=== PATIENT | female | born 1975 | race Caucasian/White ===

== ENCOUNTER → 2019-06-02 12:15 | Outpatient (CLI) | payer BC, SELFPAY ==
--- NOTE | ~2019-06-02 | MM_ITS ---
EXAMINATION: MM screening [facility] BI w belinda HISTORY: Screening mammogram TECHNIQUE: Craniocaudal and mediolateral oblique 3-D tomosynthesis images were obtained and synthetic 2-D images were generated. CAD analysis was submitted and interpreted. COMPARISON: Comparison to multiple prior studies sequentially, with oldest reviewed study dated 04/01. BREAST PARENCHYMAL COMPOSITION: There are scattered areas of fibroglandular density. FINDINGS: There is no evidence of suspicious mass, calcification, or architectural distortion to sugg est malignancy in either breast. There has been no suspicious interval change. IMPRESSION: 1. No mammographic evidence of malignancy. 2. Recommend routine screening mammography in one year. BI-RADS Category 1: Negative Reviewed, dictated and finalized at location D.
== END ==
PROVIDERS: PCP Emergency Medicine; Visit Provider Advanced Practice Midwife
DX: Z12.31 Encounter for screening mammogram for malignant neoplasm of breast (principal)
CPT/HCPCS: 77063; 77067

== ENCOUNTER → 2020-06-16 10:31 | Outpatient (CLI) | payer BC, SELFPAY ==
--- NOTE | ~2020-06-16 | MM_ITS ---
EXAMINATION: MM screening [facility] BI w belinda HISTORY: Screening mammogram TECHNIQUE: Craniocaudal and mediolateral oblique 3-D tomosynthesis images were obtained and synthetic 2-D images were generated. CAD analysis was submitted and interpreted. COMPARISON: 06/02/2019, 05/14/2018, 04/05/2017 BREAST PARENCHYMAL COMPOSITION: There are scattered areas of fibroglandular density. FINDINGS: There is no evidence of suspicious mass, calcification, or architectural distortion to sugg est malignancy in either breast. There has been no suspicious interval change. IMPRESSION: 1. No mammographic evidence of malignancy. 2. Recommend routine screening mammography in one year. BI-RADS Category 1: Negative Reviewed, dictated and finalized at location A.
== END ==
PROVIDERS: Visit Provider Advanced Practice Midwife
DX: Z12.31 Encounter for screening mammogram for malignant neoplasm of breast (principal)
CPT/HCPCS: 77063; 77067

== ENCOUNTER 2020-10-21 10:59 | Emergency (ER) | payer BC, SELFPAY ==
[2020-10-21 11:18] VITALS: BP 139/95; PULSE 71; RESP 16; TEMP 36.4; O2SAT 99
--- NOTE | 2020-10-21 11:25 | ED.SKABFB ---
HPI - Skin/Abscess/Foreign Bdy General Chief complaint: Skin/Abscess/Foreign Body Stated complaint: wasp sting History of Present Illness HPI narrative: This is a 45-year-old that was stung on her right ring finger yesterday she took some Benadryl last night but woke up today and her hand is swollen with slight erythema but her arm is starting to itch. Patient states she placed some salve on it as well as some tobacco to take the stinger out of it Related Data Allergies Allergy/AdvReac Type Severity Reaction Status Date / Time No Known Allergies Allergy Unverified 08/07/16 18:15 Review of Systems Review of Systems: CONSTITUTIONAL: Denies fever, chills, or sweats. EYES: Denies visual changes, redness, or discharge. ENT: Denies rhinorrhea, congestion, sore throat, or otalgia. CARDIOVASCULAR:Denies chest pain, palpitations, or edema. RESPIRATORY: Denies cough or dyspnea. GASTROINTESTINAL: Denies abdominal pain, nausea, vomiting, or diarrhea. GENITOURINARY: Denies dysuria or hematuria. SKIN:[Denies rash or itching. Right ring finger swollen as well as hand and arm is starting to itch MUSCULOSKELETAL:Denies back pain, joint pain, or myalgia. NEUROLOGIC: Denies headache, numbness, or weakness. PSYCHIATRIC:Denies anxiety or depression PMFSH Comments At time as signature, I have reviewed and agree with nursing past medical, social, surgical and family history. Please see nursing chart for further information. There is no relevant family history pertinent to the presenting complaint. Exam Narrative: GENERAL:Well-appearing, well-nourished, and in no acute distress. HEAD:Normocephalic, atraumatic. EYES: PERRLA and EOMI. ENT: Nares clear, no rhinorrhea or epistaxis. Mucous membranes moist. NECK: Supple. CHEST: Clear to auscultation. No respiratory distress. HEART: Regular rate and rhythm. No murmur heard. Normal peripheral pulses. ABDOMEN: Soft, nontender, nondistended, normal active bowel sounds. EXTREMITIES: Normal range of motion. Right hand swollen close to the ring finger SKIN: Warm, dry, no rash. Right hand with urticaria, slight erythema, edema NEURO: No focal deficits. Alert and oriented x3. Course LANDFILL GAS TECHNICIAN/PA Physician Supervision Discussed if she ever was bitten by or stung she needs to make sure she is taking antihistamines Discharge Plan Discharge Clinical Impression: Allergy to bee sting Contact dermatitis Qualifiers: Contact dermatitis type: allergic Contact dermatitis trigger: other trigger Qualified Code(s): L23.89 - Allergic contact dermatitis due to other agents Patient Disposition: Home, Self-Care Condition: Stable Instructions: Antibiotic Form, Insect Bite or Sting (ED), Anaphylaxis (ED), Allergies (ED) Additional Instructions: Rash use skin creams/lotion, such as those containing calamine or pramoxine to reduce itchiness Avoid scratching when possible to prevent worsening of the condition and disruption of the skin that could lead to bacterial infection To relieve itching, place a cool washcloth or some ice over the area that itches, rather than scratching Return to the office or seek ER visit if condition is not improving or worsens with fever, swelling, difficulty breathing or swallowing. Prescriptions: New cetirizine [Zyrtec] 10 mg tablet 10 mg PO DAILY PRN (Reason: allergy symptoms) Qty: 30 RF: 0 triamcinolone acetonide 0.1 % ointment 1 applic topical BID Qty: 15 RF: 0 methylprednisolone [Medrol (David)] 4 mg tablets,dose pack See Rx Instructions .ROUTE .COMPLEX Qty: 21 RF: 0 Follow-up/Referrals: Jimy Wadsworth MD [Primary Care Provider] - Time of Disposition: 11:32
== END 2020-10-21 11:37 | disposition home or self-care (01) ==
PROVIDERS: Emergency Provider Nurse Practitioner Family; PCP Emergency Medicine
DX: T63.461A Toxic effect of venom of wasps, accidental (unintentional), initial encounter (principal); L23.89 Allergic contact dermatitis due to other agents; E78.00 Pure hypercholesterolemia, unspecified; I10 Essential (primary) hypertension; F41.9 Anxiety disorder, unspecified
CPT/HCPCS: 99213; G0463

== ENCOUNTER → 2021-04-25 10:39 | Outpatient (CLI) | payer BC, SELFPAY ==
--- NOTE | ~2021-04-25 | US_ITS ---
EXAMINATION: US thyroid EXAM DATE: 04/25/2021 11:23 INDICATION: h/o partial thyroidectomy TECHNIQUE: Multiple grayscale and Doppler images of the thyroid were obtained (by a technologist who performed the scan) and subsequently reviewed. Individual nodules and recommendations may be reporte d in accordance with TI-RADS system as designated by the 2017 ACR White Paper TI-RADS committee. Comp clover is made to prior examination from 04/01/2016. FINDINGS: Right thyroid lobectomy, unremarkable thyroidectomy bed. Left thyroid lobe measures 4.9 x 1.3 x 1.7 c m possibly with lobulations or possibly isoechoic thyroid nodules measuring 1.2 x 1.2 x 1.5 cm and 1 .5 x 1.0 x 1.1 cm, category TR 3. These regions are not specifically measured on prior study. IMPRESSION: 1. Left thyroid lobe lobulation versus isoechoic category TR 3 nodules; recommend one-year follow-up . 2. Unremarkable right thyroid lobectomy bed. Reviewed, dictated and finalized at location B. HOUSE OPERATOR HELPER IMPRESSION: 1. Left thyroid lobe lobulation versus isoechoic category TR 3 nodules; recomm end one-year follow-up. 2. Unremarkable right thyroid lobectomy bed.
--- NOTE | ~2021-04-25 | US_ITS ---
EXAMINATION: US renal BI DATE: 04/25/2021 11:23 INDICATION: Microscopic hematuria TECHNIQUE: Multiple ultrasound grayscale images of the kidneys were obtained. COMPARISON: None. FINDINGS: The right kidney measures 11.4 x 5.0 x 5.2 cm. The left kidney measures 10.0 x 6.3 x 6.0 cm. The kidn eys demonstrate normal echogenicity. There is no hydronephrosis in either kidney. No stones identifi ed. The bladder is normal. IMPRESSION: 1. Normal kidneys without hydronephrosis. Reviewed, dictated and finalized at location A. GAGE BANKER
--- NOTE | ~2021-04-25 | US_ITS ---
EXAMINATION: US right upper quadrant EXAM DATE: 04/25/2021 11:23 INDICATION: RUQ pain TECHNIQUE: Multiple grayscale and Doppler images of the abdomen right upper quadrant were obtained (toshia y a technologist who performed the scan) and subsequently reviewed. There is no prior study for olamide galo. FINDINGS: The pancreatic head and body are normal in appearance. The pancreatic tail is not visualized. The l iver has normal echogenicity and contour. There is liver hypoechogenic lesion measuring 1.6 x 1.1 x 1.2 cm. Liver lesions are nonspecific by ultrasound. Patient's age favor benign histology. MR would b e most specific for evaluating. There is no evidence of intrahepatic biliary duct dilation. Portal venous flow was seen in the hepatopedal, normal direction and has normal Doppler waveform. No right- sided hydronephrosis. Common bile duct measures 3 mm, which is normal. The gallbladder wall is normal in thickness, with ex pected amount of distention. No sonographic evidence of pericholecystic fluid. There is a gallbladd er polyp measuring 5 mm requiring no further follow-up. Technologist performing exam reports patient did not demonstrate sonographic Hughes's sign. Please note that this sign is less reliable in patie nts who have received pain medication. IMPRESSION: 1. Small liver lobe lesion anteriorly, statistically most likely benign histology but ultrasound is nonspecific. MR abdomen without and with contrast would be most specific for evaluating. 2. Small gallbladder polyp. Reviewed, dictated and finalized at location B. ELET AND BROOCH MAKER IMPRESSION: 1. Small liver lobe lesion anteriorly, statistically most likely benign histol ogy but ultrasound is nonspecific. MR abdomen without and with contrast would b e most specific for evaluating. 2. Small gallbladder polyp.
== END ==
PROVIDERS: Visit Provider Emergency Medicine
DX: R31.29 Other microscopic hematuria (principal); R10.11 Right upper quadrant pain; K82.4 Cholesterolosis of gallbladder
CPT/HCPCS: 76536; 76705; 76775

== ENCOUNTER 2021-05-04 09:47 | Outpatient (CLI) | payer BC, SELFPAY ==
--- NOTE | ~2021-05-04 | NM_ITS ---
EXAMINATION: NM hepatobiliary wo pharm DATE: 05/04/2021 13:15 INDICATION: Right upper quadrant abdominal pain COMPARISON: None. TECHNIQUE: 4.9 mCi Tc-99m mebrofenin (Choletec) was administered intravenously. Scintigraphic images of the abdomen were obtained for one hour. At the 1 hour time point, the patient drank 8 oz Ensure, and imaging was continued for 60 minutes. Gallbladder ejection fraction was calculated by the technol ogist. FINDINGS: There is normal clearance of radiotracer from the blood pool. There is homogeneous tracer u ptake by the liver. Activity progresses to the bowel and gallbladder. The gallbladder ejection fract ion (GBEF) is 43%. Note that with this technique, normal GBEF >= 33%. IMPRESSION: 1. Normal hepatobiliary scan. Reviewed, dictated and finalized at location A. ESS TECHNICIAN
== END 2021-05-04 09:48 | disposition home or self-care (01) ==
LOC: ANHIMG 09:49
PROVIDERS: PCP Emergency Medicine; Visit Provider Surgery
DX: R10.11 Right upper quadrant pain (principal)
CPT/HCPCS: 78226; A9537

== ENCOUNTER 2021-06-13 15:20 | Outpatient (CLI) | payer BC, SELFPAY ==
--- NOTE | 2021-06-13 15:30 | ECG_ITS ---
Measurements Intervals Garber Rate: 70 P: 43 MA: 161 QRS: 21 QRSD: 105 T: 23 QT: 392 QTc: 424 Interpretive Statements SINUS RHYTHM POSSIBLE RIGHT VENTRICULAR CONDUCTION DELAY [RSR (QR) IN V1/V2] BASELINE ARTIFACT BORDERLINE ECG NO PREVIOUS ECG AVAILABLE FOR COMPARISON Electronically Signed On 06-13-2021 15:38:14 CDT by Houston Harding M.D.
[2021-06-13 16:14] LABS: Anion Gap 9 mmol/L (8-16); Blood Urea Nitrogen 11 mg/dL (7-17); Calcium 8.9 mg/dL (8.4-10.2); Carbon Dioxide 23 mmol/L (22-30); Chloride 104 mmol/L (98-107); Estimated Glomerular Filt Rate > 60; Glucose 141 mg/dL (65-110); Potassium 3.4 mmol/L (3.4-5.0); Sodium 136 mmol/L (137-145)
[2021-06-13 16:15] LABS: Alanine Aminotransferase 27 U/L (4-35); Albumin Level 4.5 g/dL (3.5-5.1); Alkaline Phosphatase 71 U/L (38-126); Amylase 83 U/L (30-110); Aspartate Amino Transferase 29 U/L (14-36); Bilirubin,Total 0.4 mg/dL (0.2-1.3); Lipase 155 U/L (23-300)
== END 2021-06-13 15:21 | disposition home or self-care (01) ==
LOC: ANHSURGERY 15:23
PROVIDERS: Anesthesiology; PCP Emergency Medicine; Visit Provider Surgery
DX: K81.9 Cholecystitis, unspecified (principal); I10 Essential (primary) hypertension; Z79.899 Other long term (current) drug therapy; Z01.818 Encounter for other preprocedural examination; I45.9 Conduction disorder, unspecified
CPT/HCPCS: 36415; 80048; 80076; 82150; 83690; 86850; 86900; 86901; 93005

== ENCOUNTER 2021-06-15 01:48 | Day surgery (SDC) | payer BC, SELFPAY ==
[2021-06-07 10:19] VITALS: BMI 36.6
--- NOTE | 2021-06-07 10:34 | PC.NURSE ---
Report to the Outpatient Waiting Room, entrance under the green pavilion located off [facility], at time 9:00 on date 06/15/21. OR Time: 11:00. - You and your visitor will be asked a series of questions to screen for COVID 19 for your protection. - A mask is required within the hospital. One visitor will be allowed to accompany the patient into the hospital. Patients visitor will be instructed to remain with patient at all times or leave the building. We will allow the visitor to come back to the postoperative area when patient is ready. Preoperative COVID Testing Requirements: No COVID Test needed if: (proof is required; if not received patient will have Rapid Test prior to entry) - Patient has received COVID Vaccine at least 14 days prior to procedure date or - Patient has positive COVID test result within last 90 days of surgery date. COVID Test needed if above criteria is not met Patients may have clear liquids (water, carbonated beverages, clear teas, apple juice) until 3 hours prior to surgery (8:00) with a maximum of 20 ounces. - No food from midnight until time of surgery Take the following medications with a SIP of water the morning of surgery: CARVEDILOL, PAROXETINE Medications to discontinue per physician: VITAMINS/SUPPLEMENTS Date to take last dose: 06/11/21 Please no make-up, nail amharic, hairspray, perfume, deodorant, or body powder the day of surgery. No jewelry (including any body piercings) or valuables the day of surgery, leave them at home. Please take a shower or bath the night before, or the morning of, surgery with an antibacterial soap. Wear comfortable, loose fitting clothing. HIBICLENS SHOWER - Jewelry must be removed prior to entering the operating room. Rings and piercings that are not removed may be cut off. - The hospital will not accept responsibility for valuables. - Please leave all valuables, including medications, at home the day of surgery. If you are going home after surgery, a licensed substitute bus driver must drive you home. - NO public transportation without another adult. - We recommend that an adult stay with you for 24 hours following discharge. - We also recommend that you do not drive, make important decision, drink alcoholic beverages, or take any drugs that were not prescribed by your health care provider for at least 24 hours after your discharge time. Follow any additional instructions given to you from your surgeon. Telephone instructions given to EVELYN DESAI and asked if any additional questions and then verbalized understanding. Patient advised to call surgeon office or pre surgery nurse liaison [phone] if any additional questions.
--- NOTE | 2021-06-14 16:11 | PM.SD2 ---
Same Day Admit/Disch: HPI History of Present Illness Chief complaint: acalculous chronic cholecystitis Narrative: Maritza Doherty is a 46 year old female who has had postprandial right upper quadrant abdominal pain for about 6 months. She describes the pain as burning cramping and bloating. It radiates to her back. She had an ultrasound that showed only a small gallbladder polyp. She had a HIDA scan which was negative. She has tried omeprazole without any improvement. She has tried a low-fat diet but did not notice any significant difference with that either. After thorough discussion, it is felt she likely has chronic cholecystitis. She is taken to surgery now for laparoscopic cholecystectomy. [facility] Past Medical History Medical History High cholesterol Hypertension Thyroid cancer Thyroid condition Surgical History Surgical History H/O chest tube placement H/O thyroidectomy Previous section [place] teeth extracted Family History Family History Father Hypertension Heart problem Mother Hypertension High cholesterol Osteoporosis Other Breast cancer Diabetes mellitus Social History Social History Smoking packs per day: 0.5 Smoking cigarettes per day: 10.0 Years smoked: 25 Smoking pack-years: 12.50 Smoking status: Current every day smoker Tobacco type: cigarettes Alcohol intake: never Alcohol use details: VERY RARELY Substance use: current Substance use type: other Other substance usage details: CBD OIL Living arrangements: with family Additional living arrangements comments: DAUGHTER 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 [employer] Gender identity (if verbalized by the patient): Female Spiritual care concerns: No Same Day Admit/Disch: Med Pre-admit Medications Home Medications Medication Instructions Recorded Confirmed Type losartan 100 mg PO DAILY 10/21/20 06/15/21 History omega 0-pxn-dwo-fish oil [Fish Oil] 1 cap PO DAILY 10/21/20 06/15/21 History paroxetine HCl 30 mg PO DAILY 10/21/20 06/15/21 History atorvastatin 40 mg tablet 40 mg PO DAILY 04/27/21 06/15/21 History carvedilol 6.25 mg tablet 12.5 mg PO BID tablet 04/27/21 06/15/21 History hydrochlorothiazide 12.5 mg capsule 12.5 mg PO DAILY 04/30/21 06/15/21 History multivitamin 1 tablet PO DAILY 06/07/21 06/15/21 History hydrocodone-acetaminophen 1 - 2 tablet PO Q6H PRN #10 tablet 06/15/21 Rx ibuprofen 600 mg PO Q6H PRN #14 tablet 06/15/21 Rx Exam Const: General: comfortable, no acute distress, alert and awake HENMT: Head: normocephalic and atraumatic Mouth: Yes Normal oral and palatal mucosa present Eyes: Conjunctivae: conjunctivae normal Pupils: Equal, round and reactive pupils present EOM: EOMs intact bilaterally Neck: Neck: normal visual inspection, no lymphadenopathy and nontender Resp: Effort & Inspection: normal respiratory effort Auscultation: clear to auscultation bilaterally Cardio: Rate: regular rate Rhythm: regular rhythm Heart sounds: no gallops, no murmurs and no rubs GI: Inspection: non-distended and obesity GI Palp: Yes Soft to palpation, Yes Tenderness to palpation present (GI) (Right upper quadrant), No Guarding due to palpation present (GI), No Hepatomegaly present, No Splenomegaly present and No Rebound tenderness present Auscultation: normal bowel sounds Skin: Lesions: no lesions Rashes: no rashes Neuro: General: no focal motor deficits and CN's II-XI intact bilaterally Cranial nerves: Yes Equal, round and reactive pupils present, Yes Bilaterally intact EOM present, Yes facial symmetry and Yes Midline tongue present Speech: normal speech Motor exam (neuro): 5/5 motor strength present throughout and Motor abnormalities not present Ext
[2021-06-15] VITALS (9 sets, daily range): BP systolic 109–142; BP diastolic 56–94; PULSE 54–82; RESP 12–20; TEMP 36.5–36.8; O2SAT 94–100
--- NOTE | 2021-06-15 10:01 | WPDANESEPPF ---
Anes - Initial Pre Proc Eval Procedure: Operation Date: 06/15/21 11:00 Proposed Procedures p Laparoscopic Cholecystectomy - Dong Vo MD Date/Time: 06/15/21 10:01 Surgeon: Dong Vo MD Pre Op Diagnosis: acalculous chronic cholecystitis Patient Data Age: 46 Gender: F Height: 1.65 m Weight: 99.79 kg Allergies Allergy/AdvReac Type Severity Reaction Status Date / Time No Known Allergies Allergy Verified 06/15/21 09:21 Home Medications Medication Instructions Recorded Confirmed Type losartan 100 mg PO DAILY 10/21/20 06/07/21 History omega 5-sss-fqz-fish oil [Fish Oil] 1 cap PO DAILY 10/21/20 06/07/21 History paroxetine HCl 30 mg PO DAILY 10/21/20 06/15/21 History atorvastatin 40 mg tablet 40 mg PO DAILY 04/27/21 06/07/21 History carvedilol 6.25 mg tablet 12.5 mg PO BID tablet 04/27/21 06/15/21 History hydrochlorothiazide 12.5 mg capsule 12.5 mg PO DAILY 04/30/21 06/07/21 History multivitamin 1 tablet PO DAILY 06/07/21 06/07/21 History Patient hx anesthesia problems: none Family hx anesthesia problems: none Results Review: All pre-operative results and documents have been reviewed as part of the pre-operative evaluation. [facility] Past Medical History Medical History High cholesterol Hypertension Thyroid cancer Thyroid condition Surgical History Surgical History H/O chest tube placement H/O thyroidectomy Previous section [place] teeth extracted Family History Family History Father Hypertension Heart problem Mother Hypertension High cholesterol Osteoporosis Other Breast cancer Diabetes mellitus Social History Social History Smoking packs per day: 0.5 Smoking cigarettes per day: 10.0 Years smoked: 25 Smoking pack-years: 12.50 Smoking status: Current every day smoker Tobacco type: cigarettes Alcohol intake: never Alcohol use details: VERY RARELY Substance use: current Substance use type: other Other substance usage details: CBD OIL Living arrangements: with family Additional living arrangements comments: DAUGHTER 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 Informed Consent: The patient's anesthetic plan and its attendant risks and benefits were discussed with the patient/family/POA. Questions were solicited and answers provided to the satisfaction of the patient/family/POA.
[2021-06-15] MEDS: LACTATED RINGERS 1,000 ML 30 ML IV CONT ×2 (10:15→12:42)
[2021-06-15] MEDS: ACETAMINOPHEN 500 MG TABLET 1000 MG PO (10:15)
[2021-06-15] MEDS: KETOROLAC 15 MG/ML VIAL (*BKC) IV PUSH (10:37)
--- NOTE | 2021-06-15 11:02 | WPDHPUPDATE1 ---
History and Physical Update Update Date/Time: 06/15/21 11:02 History and Physical has been reviewed, including an updated exam of the patient. There are NO changes in the patient's condition. Risks, benefits, and alternatives have been discussed and questions answered. Patient agrees to proceed with procedure.
[2021-06-15] MEDS: ceFAZolin 2 GM/D5W 50 ML 2 GM/50 ML BAG IVPB (11:19)
--- NOTE | 2021-06-15 12:49 | W.PM.PROC2 ---
Procedure Note - Detailed Date of Procedure 06/15/21 Pre-op Diagnosis acalculous chronic cholecystitis, gallbladder polyp Post-op Diagnosis Same Procedure Performed Laparoscopic cholecystectomy Surgeon Dong Vo MD Balance Wheel Hand Filer Kati Mjeia [facility] Anesthesia General and Local (0.25% Marcaine with epinephrine) Indications Patient has had right upper quadrant abdominal pain that radiates to her back. It usually occurs after eating and particularly a fatty meal. Her ultrasound showed a gallbladder polyp but no stones. HIDA scan was normal. Low-fat diet was not successful in improving her symptoms. She is taken to surgery now for laparoscopic cholecystectomy. Findings Gallbladder had minimal inflammation and no stones were noted. However, she had fatty liver and the liver surface itself was very soft and bled readily. The integrity of the liver was in less than 1 would normally expect. The majority of the gallbladder was partially intrahepatic which also increased the difficulty of the surgery. The surgery took longer and there was more bleeding because of the abnormal character of the liver itself. No biliary ductal dilatation. Description of Procedure The patient was taken to surgery and induced into general anesthesia. The abdomen is prepped and draped. Trocars were placed in the usual fashion using 0.25% Marcaine with epinephrine and applied Medical optical trocars. The gallbladder was decompressed with a laparoscopic aspirator. A Vicryl endoloop was used to close the cholecystotomy. The gallbladder itself was partially intrahepatic and had decompressed significantly. The gallbladder was retracted anterosuperiorly. I started dissection in the cholecystohepatic triangle but with the fatty liver and the liver enveloping most of the gallbladder, I had to place another 5 mm port in the left mid abdomen. From this port, a laparoscopic Kittner retractor was used to retract the medial segment of the left lobe of the liver so that I could see the attachments of the gallbladder to the liver. From there, I dissected the cholecystohepatic triangle. Nearly all dissection and even bumping the liver with an instrument resulted in bleeding from the liver itself. Cautery of these sites of minor injury was necessary to stop the bleeding. Regardless, bleeding was troublesome as far as visualization. None the less, dissection was carried out in the cholecystohepatic triangle. The cystic duct and cystic artery were dissected out clearly. We dissected the gallbladder off the liver at its lower 3rd. Critical view was achieved. I securely clipped and divided the cystic duct and cystic artery. From there we continued dissection of the gallbladder from the liver. The liver surface tended to bleed as well and would easily come off with the gallbladder if we retracted with even a moderate degree of tension. We persisted and eventually freed the gallbladder entirely from the liver. No significant bleeding of the liver recurred but more of a slow ooze that caused visualization to be more difficult. The gallbladder was placed in an Endo-Catch bag retrieved through the 10 11 epigastric trocar site. The epigastric trocar was then replaced. The liver was retracted anterosuperiorly. Using suction and irrigation as well as additional cautery, the gallbladder fossa and the undersurface the liver were made hemostatic. Repeated irrigation and suctioning were carried out. Eventually all looked good with no evidence of bleeding or bile leakage. Any residual clot or bloody irrigation was suctioned away as well. No stones had been noted. We then evacuated CO2 and removed the trocar sleeves. Skin wounds were closed with subcuticular 4-0 Monocryl skin suture. Sponge and needle counts were correct x2. The patient was awakened and taken to recovery in good condition. Estimated Blood Loss -40.0 Drains No Packing No Pathology Yes (Gallbladder) Complications No immedi
[2021-06-15] MEDS: fentaNYL CITRATE INJ (*CRX) 100 MCG/2 ML VIAL 25 MCG IV PUSH ×4 (13:17→13:50)
[2021-06-15] MEDS: oxyCODONE HCL (*CRX) 5 MG TAB IR PO (14:27)
== END 2021-06-15 15:11 | disposition home or self-care (01) ==
PROVIDERS: PCP Emergency Medicine; Visit Provider Surgery
PROC: 0FT44ZZ Resection of Gallbladder, Percutaneous Endoscopic Approach (ICD-10-PCS; CPT 47562; principal; 2021-06-15 11:00)
DX: K81.1 Chronic cholecystitis (principal); E78.00 Pure hypercholesterolemia, unspecified; K76.0 Fatty (change of) liver, not elsewhere classified; I10 Essential (primary) hypertension; E89.0 Postprocedural hypothyroidism; Z85.850 Personal history of malignant neoplasm of thyroid; F17.210 Nicotine dependence, cigarettes, uncomplicated; E66.9 Obesity, unspecified; Z68.36 Body mass index [BMI] 36.0-36.9, adult
CPT/HCPCS: 47562; 88304; A9270; C1713; J0690; J1100; J1170; J1885; J2250; J2310; J2405; J2704; J3010; J7120

== ENCOUNTER → 2021-09-18 11:07 | Outpatient (CLI) | payer BC, SELFPAY ==
--- NOTE | ~2021-09-18 | MM_ITS ---
EXAMINATION: MM screening [facility] BI w belinda HISTORY: Screening TECHNIQUE: Craniocaudal and mediolateral oblique 3-D tomosynthesis images were obtained and synthetic 2-D images were generated. CAD analysis was submitted and interpreted. COMPARISON: Comparison to multiple prior studies sequentially, with oldest reviewed study dated 04/01. BREAST PARENCHYMAL COMPOSITION: The breasts are heterogeneously dense, which may obscure small masses . FINDINGS: There is no evidence of suspicious mass, calcification, or architectural distortion to sugg est malignancy in either breast. There has been no suspicious interval change. IMPRESSION: 1. No mammographic evidence of malignancy. 2. Recommend routine screening mammography in one year. BI-RADS Category 1: Negative Reviewed, dictated and finalized at location A.
== END ==
PROVIDERS: PCP Emergency Medicine; Visit Provider Advanced Practice Midwife
DX: Z12.31 Encounter for screening mammogram for malignant neoplasm of breast (principal)
CPT/HCPCS: 77063; 77067

== ENCOUNTER → 2022-05-20 12:48 | Outpatient (CLI) | payer BC, SELFPAY ==
--- NOTE | ~2022-05-20 | US_ITS ---
EXAMINATION: US thyroid DATE: 05/20/2022 13:58 INDICATION: Thyroid nodule. TECHNIQUE: Multiple ultrasound images of the thyroid were obtained. COMPARISON: Ultrasound 04/25/2021, 04/01/16 FINDINGS: The right thyroid lobe is absent. The left thyroid lobe measures 4.6 x 1.5 x 1.8 cm. In the thyroid isthmus, there is an 8 mm solid, hypoechoic, wider than tall nodule with smooth margin without echoge korey foci (TI-RADS TR4). In the left thyroid lobe, there is a 12 mm solid, isoechoic, wider than tall nodule with ill-defined margin without echogenic foci (TR3). In the left thyroid lobe, there is a 9 m m predominantly solid, hypoechoic, wider than tall nodule with smooth margin without echogenic foci ( TR4). In the left thyroid lobe, there is a 9 mm solid, wider than tall, hypoechoic nodule with smooth margin without echogenic foci (TR4). In the left thyroid lobe, there is a 1.6 cm solid, isoechoic, w ider than tall nodule with ill-defined margin without echogenic foci (TR3), stable from 04/01/16. IMPRESSION: 1. Thyroid nodules, likely not clinically significant. No follow-up is needed. 2. Right hemithyroidectomy. Reviewed, dictated and finalized at location A. TER SCORER
== END ==
PROVIDERS: PCP Emergency Medicine
DX: E04.2 Nontoxic multinodular goiter (principal)
CPT/HCPCS: 76536

== ENCOUNTER → 2022-11-19 15:04 | Outpatient (CLI) | payer BC, SELFPAY ==
--- NOTE | ~2022-11-19 | MM_ITS ---
EXAMINATION: MM screening yesi BI w belinda HISTORY: Screening mammogram TECHNIQUE: Craniocaudal and mediolateral oblique 3-D tomosynthesis images were obtained and synthetic 2-D images were generated. CAD analysis was submitted and interpreted. COMPARISON: 09/18/2021, 06/16/2020, 06/02/2019 bilateral screening mammogram examinations BREAST PARENCHYMAL COMPOSITION: There are scattered areas of fibroglandular density. FINDINGS: There is no evidence of suspicious mass, calcification, or architectural distortion to sugg est malignancy in either breast. There has been no suspicious interval change. IMPRESSION: 1. No mammographic evidence of malignancy. 2. Recommend routine screening mammography in one year. BI-RADS Category 1: Negative Reviewed, dictated and finalized at location A.
== END ==
PROVIDERS: PCP Advanced Practice Midwife; Visit Provider Emergency Medicine
DX: Z12.31 Encounter for screening mammogram for malignant neoplasm of breast (principal)
CPT/HCPCS: 77063; 77067

== ENCOUNTER 2023-10-02 09:08 | Outpatient (CLI) | payer BC, SELFPAY ==
--- NOTE | ~2023-10-02 | US_ITS ---
EXAMINATION: US thyroid DATE: 10/02/2023 09:26 INDICATION: . Nodule TECHNIQUE: Multiple ultrasound images of the thyroid were obtained. COMPARISON: None. FINDINGS: Status post right thyroidectomy with no abnormal tissue identified at the right thyroid fossa. The le ft thyroid lobe measures 4.0 x 1.7 x 1.7 cm. There are couple wider than tall solid hypoechoic very hypoechoic nodules with smooth margins and without echogenic foci (TI-RADS 4, moderately suspicious , FNA if >=1.5 cm, annual followup is >=1 cm) is larger measuring 10 mm the inferior left thyroid and the smaller measuring 8 mm at the remaining left side of the thyroid isthmus. 9 mm wider than tall so lid hyperechoic nodule with ill-defined margins and without echogenic foci at the inferior left thyro id (TI-RADS 3, mildly suspicious , FNA if >=2.5 cm, annual followup is >=1.5 cm). Finally there is a wider than tall mixed solid and cystic nodule with smooth margins, isoechoic solid component and no e chogenic foci (TI-RADS 2, not suspicious, no FNA recommended) in the inferior left thyroid. IMPRESSION: 1. There is post prior thyroidectomy. 2. A few small nodules in the left thyroid, the most significant a 1 cm TI RADS 4 nodule for which an nual ultrasound would be recommended. Reviewed, dictated and finalized at location A. IMPRESSION: 1. There is post prior thyroidectomy. 2. A few small nodules in the left thyroid, the most significant a 1 cm TI RADS 4 nodule for which annual ultrasound would be recommended.
== END 2023-10-02 09:09 ==
PROVIDERS: PCP Emergency Medicine
DX: E04.1 Nontoxic single thyroid nodule (principal)
CPT/HCPCS: 76536

== ENCOUNTER 2023-11-25 15:06 | Outpatient (CLI) | payer BC, SELFPAY ==
--- NOTE | ~2023-11-25 | MM_ITS ---
EXAMINATION: MM screening [facility] BI w belinda HISTORY: Screening mammogram TECHNIQUE: Craniocaudal and mediolateral oblique 3-D tomosynthesis images were obtained and synthetic 2-D images were generated. CAD analysis was submitted and interpreted. COMPARISON: 11/19/2022, 09/18/2021, 06/16/2020, 06/02/2019 BREAST PARENCHYMAL COMPOSITION:Not Dense. There are scattered areas of fibroglandular density. FINDINGS: No suspicious mass, calcification, or architectural distortion are identified in either harinder ast to suggest malignancy. There has been no suspicious interval change. IMPRESSION: No mammographic evidence of malignancy. Recommend routine screening mammography in one year. BI-RADS Category 1: Negative Reviewed, dictated and finalized at location .
== END 2023-11-25 15:07 | disposition home or self-care (01) ==
PROVIDERS: PCP Nurse Practitioner Family; Visit Provider Nurse Practitioner Family
DX: Z12.31 Encounter for screening mammogram for malignant neoplasm of breast (principal)
CPT/HCPCS: 77063; 77067

== ENCOUNTER 2025-02-15 15:46 | Outpatient (CLI) | payer BC, SELFPAY ==
--- NOTE | ~2025-02-15 | MM_ITS ---
EXAMINATION: MM screening yesi BI w belinda HISTORY: Screening. TECHNIQUE: Craniocaudal and mediolateral oblique 3-D tomosynthesis images were obtained and synthetic 2-D images were generated. CAD analysis was submitted and interpreted. COMPARISON: 2023, 2022, and 2021 BREAST PARENCHYMAL COMPOSITION: Dense: The breasts are heterogeneously dense FINDINGS: No suspicious masses are seen. There are no suspicious calcifications. No unexplained architectural distortion is seen. There are no skin or nipple abnormalities identified. There is no adenopathy seen on the images submitted. IMPRESSION: No mammographic evidence to suggest malignancy is seen. The patient may return to screening mammography as per ACR guidelines. BI-RADS 1 - Negative. Reviewed, dictated and finalized at location B. POLLUTION SPECIALIST
--- OUTSIDE RECORDS SUMMARY | 2025-02-15 16:50 | XMS_ITS | Encounter Summary ---
Author Organization [facility] Address [facility] [place] [address] Care Team Providers Care Medicine Technologist Name Role Phone Abbie Klein [facility]- Primary Care Provider + Marciano Lara MD Primary Care Provider [phone] Encounter Details Date Type Department Care Team (Late st Contact Info) Description 12/25/2023 [employer] Message Enc [facility] Family & Internal Medicine [address] [address] Abbie Klein, [facility]- [address] [place] [address] Pain in the right upper abdomen again Social History Tobacco Use Types Packs/Day Years Used Date Smoking Tobacco: Never Cigarettes 0.3 26 Passive Smoke Exposure: Yes Comments:I used to smoke cig arettes, but I pretty much vape now Alcohol Use Standard Drinks/Week Comments Not Currently 0 (1 standard drink = 0.6 oz pure alcohol) I very rarely drink, but if I do, it's maybe 2 or 3 PHQ-2 Answer Date Recorded Patient Health Questionnaire-2 Score 4 12/01/2023 Comments No Sex and Gender Information Value Date Recorded Sex Assigned at Female 10/21/2024 9:20 AM CDT Legal Sex Female 9:41 AM CDT Gender Identity Female 10/21/2024 9:20 AM CDT Sexual Orientation Not on file documented as of this encounter Progress Notes * ISRAEL Bundy - 12/29/2023 12:20 PM CDT Please order HOA, ESR, CRP, B12/folate, vitamin D, and CBC for polyarthralgias * Carmen Sousa RN - 12/29/2023 11:47 AM CDT Please advise. documented in this encounter Plan of Treatment Upcoming Encounters Date Type Department Care Team (Late st Contact Info) Description 07/26/2025 3:20 PM CDT Office Visit [facility] Medical [facility] Family & Internal Medicine [address] [address] [place] [id number] [address] documented as of this encounter Visit Diagnoses Not on filedocumented in this encounter Additional Health Concerns Assessment Noted Time PHQ-9 Depression Total Score: 14 0916/2 024 3:56 PM CDT documented as of this encounter Care Teams Medicine Technologist Relationship Specialty Start Date End Date Abbie Klein FNP-BC PCP - General Nurse Practitioner Family 10/28/2309/14 [place] [id number] [address] PCP - General INTERNAL MEDICINE 09/25/24 documented as of this encounter
--- OUTSIDE RECORDS SUMMARY | 2025-02-15 16:50 | XMS_ITS | Clinical Summary ---
Author Organization [facility] Address [address] [facility] [place] [address] Care Team Providers Care Residency Coordinator Name Role Phone Unavailable Primary Care Provider Unavailabl e Source Comments [facility],non-owned Affiliates and Associated Physician Practices is amultiple site organization consisting of ambulatory clinics and hospital sitesin [place] and [place]. This disclosure is being madepursuant to the Care Everywhere program and may not contain all information available regarding this patient. Last updated 17.[facility] Allergies No known active allergies Medications * Be aware that medications may not be up to date on this document. Alwaysverify current medications with the patient. No known medications Social History Tobacco Use Types Packs/Day Years Used Date Smoking Tobacco: Every Day Comments Unknown Sex and Gender Information Value Date Recorded Sex Assigned at Not on file Legal Sex Female 2:18 PM APPLICATION SOFTWARE DEVELOPER Gender Identity Not on file Sexual Orientation Not on file Last Filed Vital Signs Vital Sign Reading Time Taken Comments Blood Pressure 122/86 02/01/2016 4:59 PM APPLICATION SOFTWARE DEVELOPER Pulse 89 02/01/2016 4:59 PM APPLICATION SOFTWARE DEVELOPER Temperature 37.1 C (98.7 F) 02/01/2016 4:59 PM APPLICATION SOFTWARE DEVELOPER Respiratory Rate 20 02/01/2016 4:59 PM APPLICATION SOFTWARE DEVELOPER Oxygen Saturation 98% 02/01/2016 4:59 PM APPLICATION SOFTWARE DEVELOPER Inhaled Oxygen Concentration - - Weight 86.2 kg (190 lb) 02/01/2016 4:59 PM APPLICATION SOFTWARE DEVELOPER Height 165.1 cm (5' 5) 02/01/2016 4:59 PM APPLICATION SOFTWARE DEVELOPER Body Mass Index 31.62 02/01/2016 4:59 PM APPLICATION SOFTWARE DEVELOPER Plan of Treatment Health Maintenance Due Date Last Done Comments COLOGTRI (AGES 45-75) - COL ON CA SCREENING 1975 COLON MONITORING 1975 COLONOSCOPY - COLON CA SCREENING 1975 CT COLONOGRAPHY - COLON CA SCREENING 1975 Colorectal Cancer Screening 1975 FIT - COLON CA SCREENING 1975 FLEX SIG - COLON CA SCREENING 1975 LIPID TESTING 1975 MAMMOGRAM 1975 HIV SCREENING 1990 HEPATITIS C SCREENING 05/08/1993 DTAP/TDAP/TD VACCINES (1 - Tdap) 1994 HEPATITIS B VACCINE (1 of 3 - 19+ 3-dose series) 1994 PAP SMEAR 1996 Cervical Cancer Screening 2005 PAP with HPV 2005 DEPRESSION SCREENING 03/17/2024 COVID-19 VACCINE (1 - 2024-2 6 season) 2024 INFLUENZA VACCINE (#1) 2024 ZOSTER VACCINE (1 of 2) 2025 HIB VACCINE Aged Out No longer eligi ble based on patient's age to complete this topic HPV VACCINE Aged Out No longer eligi ble based on patient's age to complete this topic MENINGOCOCCAL (Group B) VACC INE SHARED DECISION-MAKING Aged Out No longer eligibl e based on patient's age to complete this topic MENINGOCOCCAL GROUPS A/C/Y/W VACCINE Aged Out No longer eligible b ased on patient's age to complete this topic Insurance [employer] Member Subscriber Plan / Payer (Ef fective 2016-Present) Name:Maritza Desai Relation to Subscriber:Self Name:MARITZA DESAI Payer ID:[id number] (NAIC) Type:PPO Address: [address] [place] [id number]
--- OUTSIDE RECORDS SUMMARY | 2025-02-15 16:50 | XMS_ITS | Encounter Summary ---
Author Organization [facility] Address [facility] [place] [address] Care Team Providers Care Apartment Manager Name Role Phone Abbie Klein [facility]- Primary Care Provider + Marciano Lara MD Primary Care Provider [phone] Encounter Details Date Type Department Care Team (Late st Contact Info) Description 12/17/2023 [employer] Message Enc [facility] Family & Internal Medicine [address] [address] Abbie Klein, [facility]- [address] [place] [address] Vitamin D script Social History Tobacco Use Types Packs/Day Years [...] encounter Progress Notes * ISRAEL Bundy - 12/17/2023 12:08 PM CDT She would be fine taking vitamin D3 1000 IU daily instead of the high weekly dose. * Carmen Sousa RN - 12/17/2023 11:21 AM CDT Please advise. Last Vit D level was 40 documented in this encounter Plan of Treatment Upcoming Encounters Date Type Department Care Team (Late st Contact Info) Description 07/26/2025 3:20 PM CDT Office Visit [facility] Family & Internal Medicine [facility] [address] [place] [address] [place] [id number] [phone] documented as of this encounter Visit Diagnoses Not on filedocumented in this encounter Additional Health Concerns Assessment Noted Time PHQ-9 Depression Total Score: 14 11/30/ 024 3:56 PM CDT documented as of this encounter Care Teams Apartment Manager Relationship Specialty Start Date End Date Abbie Klein FNP-BC PCP - General Nurse Practitioner Family 10/28/2309/14 [place] [address] [address] PCP - General INTERNAL MEDICINE 09/25/24 documented as of this encounter
--- OUTSIDE RECORDS SUMMARY | 2025-02-15 16:51 | XMS_ITS | Clinical Summary ---
Author Organization [facility] Address [address] [place] [address] Care Team Providers Care Family Coach Name Role Phone Marciano Lara MD Primary Care Provider Allergies Active Allergy Reactions Criticality Noted Date Comments Alpha-Gal Diarrhea,GI Upset,Swelling Medium 5 Bacid GI Upset Medium 12/01/2023 Gluten Meal GI Upset,Itching,Swelling Medium 5 Medications hydroCHLOROthiaz gina (MICROZIDE) 12.5 MG capsule Take 1 capsule (12.5 mg total) by mouth every morning. 11/28/19 24 Active [place]-3 Fatty Acids (FISH OIL) 1200 MG Cap Take 1,200 mg by mouth daily. Active MOUNJARO 7.5 MG/0.5ML injection inject 7.5mg under the skin every 7 days Active losartan (COZAAR) 100 MG tabletIndication s:Primary hypertension Take 1 tablet (100 mg total) by mouth daily. 90 tablet 1 12/09/19 25 Active atorvastatin (LIPITOR) 80 MG tablet Take 1 tablet (80 mg total) by mouth nightly at bedtime. 11/24/19 25 Active ezetimibe (ZETIA) 10 MG tablet Take 1 tablet (10 mg total) by mouth daily. 11/12/19 25 Active carvedilol (COREG) 12.5 MG tabletIndication s:Primary hypertension Take 1 tablet (12.5 mg total) by mouth 2 (two) times daily. 180 tablet 1 01/26/20 25 Active buPROPion XL (WELLBUTRIN XL) 150 MG 24 hr tabletIndication s:Anxiety associated with depression Take 1 tablet (150 mg total) by mouth daily. 90 tablet 1 01/26/20 25 Active atorvastatin (LIPITOR) 40 MG tablet Take 1 tablet (40 mg total) by mouth daily. 06/02/19 025 Discontinued carvedilol (COREG) 6.25 MG tabletIndication s:Primary hypertension Take 1 tablet (6.25 mg total) by mouth 2 (two) times daily. 180 tablet 3 01/26/20 24 025 Discontinued(Do se adjustment) buPROPion XL (WELLBUTRIN XL) 300 MG 24 hr tabletIndication s:Anxiety associated with depression Take 1 tablet (300 mg total) by mouth daily. 90 tablet 1 10/22/19 025 Discontinued buPROPion XL (WELLBUTRIN XL) 150 MG 24 hr tablet Take 1 tablet (150 mg total) by mouth daily. 025 Discontinued(Re order) Active Problems Problem Noted Date Diagnosed Date BMI 35.0-35.9,adult 10/23/2024 Assessment & Plan (10/23/2024 4:01 PM CDT): Currently on Mounjaro 7.5 mg weekly per answering service telephone operator and has lost about 38 pounds since April of this year. Referred to bariatric team per the patient by the Endo Recommend to stop soda Exercise and movement-physically active for at least 150 minutes per week Nutrition-Eat mostly plants (variety of whole grains & aim for carbohydrates low in glycemic index) -Limit fat (25-35% of your total calories) -Eat more omega-3 fatty acids (eating fatty cold water fish, walnuts, ground flax seed, and fortified eggs) -Drink more fluids (8 cups per day) -Eat smart (same time & portions) -Eat only when hungry Cigarette nicotine dependenc e with nicotine-induced disorder 10/21/2024 Assessment & Plan (01/25/2025 10:57 AM KEY ENTRY OPERATOR): Smokes upto 1/2 PPD (since 19yrs old) -Patient unwilling to quit, will continue to encourage. Currently smoking 8 cigarettes a day per the patient and I agreed to cut down and stop at 1 point Assessment & Plan (10/23/2024 4:01 PM CDT): Smokes upto 1/2 PPD (since 19yrs old) Discussed patient options for quitting smoking. Discussed the risks of continuing to smoke and also the benefits of quitting smoking; encouraged the patient to look 1-2 months into the future and decide on a quit date. Informed of the risks of smoking and the health consequences. Patient unwilling to quit, will continue to encourage. 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 A few small nodules in the left thyroid, most significant 1cm ti-RAD4 nodule annual ultrasound would be recommended. (Last US 09/2023) On mounjaro per the Endo also referring to Bariatric team-controlled cholesterol and weight per the patient Assessment & Plan (10/21/2024 10:40 AM CDT): S/p left thyroid nodule with hx right hemithyroidectomy 2017 with Follicular adenoma, oncocytic type Under care by Endo @ [facility] [employer]. A few small nodules in the left thyroid, most significant 1cm ti-RAD4 nodule annual ultrasound would be recommended. (Last US 09/2023) On mounminal per the Endo also referring to Bariatric team-controlled cholesterol and weight per the patient Sleep disturbance 12/09/2023 B12 deficiency 12/09/2023 Vitamin D deficiency 12/09/2023 Class 2 severe obesity due t o excess calories with serious comorbidity and body mass index (BMI) of 39.0 to 39.9 in adult 12/09/2023 Gastroesophageal reflux dise ase, unspecified whether esophagitis present 12/09/2023 Moderate episode of recurrent major depressive d isorder 12/09/2023 Dyslipidemia 12/01/2023 Assessment & Plan (01/25/2025 10:57 AM KEY ENTRY OPERATOR): Per pt on 11/05/24 Cardiology increased Atorvastatin to 80 mg daily and add Zetia 10 mg every day after the labs LDL was 100 with elevated HS CRP 3.1 (<1.0) Per advanced lipid panel 10/18/24 Elevated LDL small & medium particles& Lipo a Denies myalgia Assessment & Plan (10/21/2024 10:40 AM CDT): Currently on atorvastatin 40mg at sup[per with diet control In the process seeing a Bariatric team. Patient had recent labs through her answering service telephone operator few days ago-none on the chart Hypertension 12/01/2023 Assessment & Plan (01/25/2025 10:57 AM KEY ENTRY OPERATOR): Per hair assistant recent TTE and stress test were wnl (Strong f/h per the pt) Currently on HCTZ 12.5 + losartan 100mg daily+ coreg 6.25mg BID Recommend low salt diet Since her home blood pressure is somewhat higher will increase coreg to12.5 mg twice a day-patient to call us with home blood pressure readings Orders: carvedilol (COREG) 12.5 MG tablet; Take 1 tablet (12.5 mg total) by mouth 2 (two) times daily. Assessment & Plan (10/21/2024 10:40 AM CDT): Does see Cardiology Better controlled Per hair assistant recent TTE and stress test were wnl (Strong f/h per the pt) Currently on HCTZ 12.5 + losartan 100mg daily+ coreg 6.25mg BID Recommend low salt diet History of abnormal cervical Papanicolaou smear 05/16/2020 Anxiety associated with depression 05/16/2020 Assessment & Plan (01/25/2025 10:57 AM KEY ENTRY OPERATOR): On buproprion 150mg daily- doing better clinically Lost her dad in November-overall doing okay Orders: buPROPion XL (WELLBUTRIN XL) 150 MG 24 hr tablet; Take 1 tablet (150 mg total) by mouth daily. Assessment & Plan (10/21/2024 10:40 AM CDT): Feels somewhat anxious and down like in the late in the afternoon Increased bupropion XL 300 milligram daily Follow-up in 3 months to assess Patient also encouraged to cut back smoking and stop it if possible Orders: buPROPion XL (WELLBUTRIN XL) 300 MG 24 hr tablet; Take 1 tablet (300 mg total) by mouth daily. 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 03/23/2017 12/01/2023 Overview (12/01/2023): Papillomavirus as the cause of diseases classified elsewhere;Recorded Elsewhere: No [facility] Source: EHR Chronic: N Practice ID: [id number] Billable Time: 05:00:00 PM Pneumonia 03/07/2016 12/01/2023 Encounters Date Type Department Care Team Description 01/25/2025 10:00 AM KEY ENTRY OPERATOR Office Visit [facility] Family & Internal Medicine [address] [address] Marciano Lara MD Anxiety (3 mo f/u med check) 01/25/2025 Travel from Last 3 Months Immunizations Immunization Administration Dates Next Due COVID-19 Vaccine (Generic) 03/17/2020 Influenza (Generic) 12/27/2024 Influenza Adult (Generic) 12/25/2023,07/2022,12/20/2021,12/25/2020,12/10,12/17/2017,01/07/2017 Family History Medical History Relation Comments Heart Disease Father 2 heart attacks and AICD Hypertension Father Cancer Maternal Aunt breast Cancer Maternal Grandfather Pancreas Diabetes Maternal Grandfather Cancer Maternal Grandmother breast s/p double mastectomy Hyperlipidemia Mother Hypertension Mother Cancer Paternal Aunt breast() Early Paternal Grandfather heart attac k Hyperlipidemia Sister Hypertension Sister Relation Status Comments Father Maternal Aunt Maternal Grandfather Maternal Grandmother Mother Paternal Aunt Paternal Grandfather Sister Social History Tobacco Use Types Packs/Day Years Used Date Smoking Tobacco: Never Cigarettes 0.3 26 Passive Smoke Exposure: Yes Tobacco Cessation:Counseling Given: No Comments:I used to smoke cigarettes, but I pretty much vape now Alcohol Use Standard Drinks/Week Comments Not Currently 0 (1 standard drink = 0.6 oz pure alcohol) I very rarely drink, but if I do, it's maybe 2 or 3 PHQ-2 Answer Date Recorded Patient Health Questionnaire-2 Score 3 10/21/2024 Comments No Sex and Gender Information Value Date Recorded Sex Assigned at Female 10/21/2024 9:20 AM CDT Legal Sex Female 9:41 AM CDT Gender Identity Female 10/21/2024 9:20 AM CDT Sexual Orientation Not on file Last Filed Vital Signs Vital Sign Reading Time Taken Comments Blood Pressure 145/93 01/25/2025 10:01 AM KEY ENTRY OPERATOR Pulse 94 01/25/2025 10:01 AM KEY ENTRY OPERATOR Temperature 36.8 C (98.2 F) 01/25/2025 10:01 AM KEY ENTRY OPERATOR Respiratory Rate 16 01/25/2025 10:01 AM KEY ENTRY OPERATOR Oxygen Saturation 99% 01/25/2025 10:01 AM KEY ENTRY OPERATOR Inhaled Oxygen Concentration - - Weight 90.7 kg (200 lb) 01/25/2025 10:01 AM KEY ENTRY OPERATOR Height 165.1 cm (5' 5) 01/25/2025 10:01 AM KEY ENTRY OPERATOR Body Mass Index 33.28 01/25/2025 10:01 AM KEY ENTRY OPERATOR Plan of Treatment Upcoming Encounters Date Type Department Care Team (Late st Contact Info) Description 07/26/2025 3:20 PM CDT Office Visit [facility] Family & Internal Medicine [address] [address] Marciano Lara MD [address] [place] [address] [place] [id number] Health Maintenance Due Date Last Done Comments Annual Physical 1978 Hepatitis C 1993 DTaP, Tdap and Td Vaccines (1 - Tdap) 1994 Hepatitis A Vaccines (1 of 2 - Risk 2-dose series) 1994 Hepatitis B Vaccines (1 of 3 - 19+ 3-dose series) 1994 Cervical Cancer Screening Pap with HPV Testing (Age 30 to 64) Every 5 Years 2005 COVID-19 Vaccine (5 - 2025-26 season) 2024 01/25/2021, 04/30/2020, 04/09/2020, Additional history exists Mammogram Screening 11/24/2025 11/25/2023 Colorectal Cancer Screening Colonoscopy (10 Years) 12/16/2027 Postponed from 1975 (Per Provider Recommendation) Cervical Cancer Screening Pap Smear (Age 30 to 64) Every 3 Years 01/13/2028 01/12/2025, 01/12/2024, 01/08/2023 Cervical Cancer Screening with HPV 01/13/2028 PHQ-2 (Physician [place]) Completed 10/21/2024 Influenza Adult Completed 12/27/2024, 12/15, 12/19/2022, Additional history exists Meningococcal B Vaccine Aged Out No l onger eligible based on patient's age to complete this topic Meningococcal Vaccine Aged Out No jluis maged eligible based on patient's age to complete this topic Pneumococcal Vaccine: Pediatrics (0 to 5 Years) and At-Risk Patients (6 to 49 Years) Aged Out No longer eligible based on patient's age to complete this topic RSV Immunizations Under 20 Months Aged Out No longer eligible based on patient's age to complete this topic Procedures Procedure Name Priority Date/Time Associated Diagnosis Comments MAMMOGRAM GENERIC (SCAN ORDER) 11/25/2023 from Last 3 Months or Most Recently Relevant to Health Maintenance Results * MAMMOGRAM GENERIC (SCAN ORDER) (11/25/2023) Anatomical Region Laterality Modality Other 11/25/2023 [facility] Scanned SCANNING Final Resu lt from Last 3 Months or Most Recently Relevant to Health Maintenance Insurance [facility] Care Teams Family Coach Relationship Specialty [place] [address] [place] [address] PCP - General INTERNAL MEDICINE 09/25/24
--- OUTSIDE RECORDS SUMMARY | 2025-02-15 16:51 | XMS_ITS | Encounter Summary ---
Author Organization [facility] Address [facility] [place] [address] Care Team Providers Care Muffler Hand Name Role Phone Abbie Klein BUSINESS PROFESSOR- Primary Care Provider + Marciano Lara MD Primary Care Provider [phone] Encounter Details Date Type Department Care Team (Late st Contact Info) Description 02/17/2024 [place] Message Enc [facility] Family & Internal Medicine [address] [address] Abbie Klein, [facility] [place] [address] 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 Social History Tobacco Use Types Packs/Day Years [...] on file documented as of this encounter Plan of Treatment Upcoming Encounters Date Type Department Care Team (Late st Contact Info) Description 07/26/2025 3:20 PM CDT Office Visit [facility] Family & Internal Medicine [facility] [address] [place] [phone] [place] [address] [address] documented as of this encounter Visit Diagnoses Not on filedocumented in this encounter Additional Health Concerns Assessment Noted Time PHQ-9 Depression Total Score: 14 024 3:56 PM CDT documented as of this encounter Care Teams Muffler Hand Relationship Specialty Start Date End Date Abbie Kleni, BUSINESS PROFESSOR- PCP - General Nurse Practitioner Family 10/28/2309/14 [place] [id number] [address] PCP - General INTERNAL MEDICINE 09/25/24 documented as of this encounter
--- OUTSIDE RECORDS SUMMARY | 2025-02-15 16:51 | XMS_ITS | Encounter Summary ---
Author Organization [facility] Address [facility] [place] [address] Care Team Providers Care Figure Clerk Name Role Phone Abbie Klein Jessica [facility] Primary Care Provider + Marciano Lara MD Primary Care Provider [phone] Encounter Details Date Type Department Care Team (Latest Contact Info) Description 07/12/2024 [employer] Message Enc [facility] [address] [address] Hardy Samson MD [address] [place] [phone] EGD scheduled in September Social History Tobacco Use Types Packs/Day Years [...] Answer Date Recorded Patient Health Questionnaire-2 Score 0 04/30/2024 Comments No Sex and Gender Information Value Date Recorded Sex Assigned at Female 10/21/2024 9:20 AM CDT Legal Sex Female 9:41 AM CDT Gender Identity Female 10/21/2024 9:20 AM CDT Sexual Orientation Not on file documented as of this encounter Plan of Treatment Upcoming Encounters Date Type Department Care Team (Late st Contact Info) Description 07/26/2025 3:20 PM CDT Office Visit [facility] Family & Internal Medicine [facility] [address] [place] [address] [place] [address] [address] documented as of this encounter Visit Diagnoses Not on filedocumented in this encounter Additional Health Concerns Assessment Noted Time PHQ-9 Depression Total Score: 0 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
--- OUTSIDE RECORDS SUMMARY | 2025-02-15 16:51 | XMS_ITS | Encounter Summary ---
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 Social History Tobacco Use Types Packs/Day Years [...] Description 07/26/2025 3:20 PM CDT Office Visit [facility] Family & Internal Medicine [facility] [address] [place] [phone] [place] [address] [address] documented as of this encounter Visit Diagnoses Not on filedocumented in this encounter Additional Health Concerns Assessment Noted Time PHQ-9 Depression Total Score: 14 024 3:56 PM CDT documented as of this encounter Care Teams Gardener Florist Relationship Specialty Start Date End Date Abbie Klein, EDUCATIONAL GUIDANCE COUNSELOR- PCP - General Nurse Practitioner Family 10/28/2309/14 [place] [address] [address] PCP - General INTERNAL MEDICINE 09/25/24 documented as of this encounter
--- OUTSIDE RECORDS SUMMARY | 2025-02-15 16:51 | XMS_ITS | Encounter Summary ---
Author Organization [facility] Address [facility] [place] [address] Care Team Providers Care Suture Winder Hand Name Role Phone Marciano Lara MD Primary Care Provider [phone] Encounter Details Date Type Department Care Team (Late st Contact Info) Description 11/05/[address] [address] [facility] Family & Internal Medicine [address] [address] Marciano [place] [id number] [place] [address] Bloodwork from 10/18 Social History Tobacco Use Types Packs/Day Years [...] Description 07/26/2025 3:20 PM CDT Office Visit [facility] Family & Internal Medicine [facility] [address] [place] [address] [place] [address] [address] documented as of this encounter Visit Diagnoses Not on filedocumented in this encounter Additional Health Concerns Assessment Noted Time PHQ-9 Depression Total Score: 5 10/22/19 25 9:29 AM CDT documented as of this encounter Care Teams Suture Winder Hand Relationship Specialty Start [place] [address] [address] PCP - General INTERNAL MEDICINE 09/25/24 documented as of this encounter
--- OUTSIDE RECORDS SUMMARY | 2025-02-15 16:51 | XMS_ITS | Data Portability ---
Author Organization [facility] Address [address] [place] [address] [place] [address] Care Team Providers Care Produce Clerk Name Role Phone LAURA BOWEN Primary Care Provider [phone] Assessment Encounter Date Assessment Date Assessment LastModified by Organization Details LastModified Time 01/12/2024 01/12/2024 Annual gynecological exam performed. Patient will come back in a year unless there are new symptoms. [email or web address] Not available 01/12/2024 17:34:13 01/12/2025 01/12/2025 Annual gynecological exam performed. Patient will come back in a year unless there are new symptoms. [email or web address] Not available 01/12/2025 17:13:09 Plan of Treatment Reminders Order Date Submit Date Provider Last Modified By Organization Details Last Modified Time Details Appointments [facility] 2025 04:15P M MEI BILLY, SASHA Not available Not available Not available Lab pap, IG + HR HPV - HPV regardles s but if HPV is positive need subtyping 16,18/45 2024 025 [facility] (Lab), [address], [place], [address], 01/18/2025 09:49:31 Referral None recorded. Procedures None recorded. Surgeries None recorded. Imaging MAMMO, screening , digital, bilateral 2024 025 [facility], [address], [address] [address], [place], [address], 01/26/2025 04:04:48 US, transvagi nal 2023 024 [email or web address], [address], [place], [address], 03/09/2024 23:12:03 US, pelvis 2023 024 [email or web address], [address], [place], [address], 03/09/2024 23:12:03 Medication Orders Vivelle-D ot 0.05 mg/24 hr transderm al patch 2024 025 [id number], [address], [place], [id number], 06/23/2024 18:35:51 Patient TargetsNo targets recorded. Patient InstructionsNo instructions recorded. Reason for Referral None Reported. Results Created Date Observation Date Name Description Value Unit Range Abnormal Flag Note LastModifiedBy Organization Detail LastModifiedTime 01/12/20 24 01/12/2024 IMAGE GUIDE D PAP AND HPV REGAR DLESS image guided Pap, HPV regardless of Pap result SEE RESULT S BELOW CASE REPOR T: Cytol ogy Gynec ologi celi Repor t Case: [id number] Autho abenaeduarda g Provi anatoly: Alejandra Cotton MD Colle cted: 01/11 1716 Order ing Locat ion: [place] Patho logy Recei yeimy: 01/12 0822 First Scree n: Jelly Wadsworth ica Speci men: Scree dwayne Pap - Image d, Cervi x STATE MENT OF ADEQU ACY: Satis facto ry for evalu ation Trans forma tion zone compo nent absen t ----- ----- ----- ----- ----- ----- ----- ----- ----- ----- ----- ----- ----- ----- ----- ----- ----- ---- FINAL DIAGN OSIS: Negat perlita for Intra epith elial Lesio n or Artiejune jeannie (NIL) . Elect amador raza eriberto d by Jelly Wadsworth ica on 2023 at 10:51 AM ----- ----- ----- ----- ----- ----- ----- ----- ----- ----- ----- ----- ----- ----- ----- ----- ----- ---- HPV RESUL TS: HPV mRNA E6/E7 : No HPV mRNA Detec flavia NOTE: This high risk HPV mRNA assay detec ts fourt een high- risk HPV types (16, 18, 31, 33, 35, 39, 45, 51, 52, 56, 58, 59, 66, 68) witho ut diffe renti ation . COMME NT: This speci men was revie wed by a Cytot echno logis t and/o r Patho logis t (as indic ated in this repor t) after evalu ation using the Thinp rep Imagi ng Syste m. CLINI CELI INFOR MATIO N: Menst rual Statu s: LMP (if appli cable ): Clini celi Histo ry/Pr eviou s Pap: Type of Neopl danielito (if appli cable ): Signi fican t Clini ceil Findi ngs: Other Histo ry: Hormo bernice (if appli cable ): PAP EDUCA JENAE L NOTE: The Pap Test is a scree dwayne test with an inher ent false negat perlita rate. Liqui d-bas ed sampl ing may decre ase, but will not elimi ken, false negat perlita resul ts. A negat perlita resul t does not precl ude the prese nce and/o r devel opmen t of disea se, since the prese nce of abnor mal cells in the sampl e depen ds on the locat ion of the lesio n and sampl ing techn ique. Vonda nued regul ar scree dwayne is the best metho d of cance r preve ntion . If repor flavia cytol ogic findi ng do not corre late with physi celi and/o r histo rical findi ngs, furth er inves tigat ion is recom nerissa d, as clini leticia simon nted. Not Available [facility] (Lab) [address], [place], [address], 01/18/2024 11:54:44 01/13/20 25 01/12/2025 IMAGE GUIDE D PAP AND HPV REGAR DLESS image guided Pap, HPV regardless of Pap result SEE RESULT S BELOW CASE REPOR T: Cytol ogy Gynec ologi celi Repor t Case: [id number] Autho rustam tello Provi anatoly: Devonte steele, Mei , ANP, FISHERIES DIVER Colle cted: 01/12 1658 Order ing Locat ion: [place] Patho logy Recei yeimy: 01/13 0851 First Azeem n: Philipp Gongora, [place] Speci men: Azeem rice Pap - Image d, Cervi x STATE MENT OF ADEQU ACY: Satis facto ry for evalu ation Trans forma tion zone compo nent absen t ----- ----- ----- ----- ----- ----- ----- ----- ----- ----- ----- ----- ----- ----- ----- ----- ----- ---- FINAL DIAGN OSIS: Negat perlita for Intra epith elial Shin lerner or Keisha dennis ([facility]) . Elect amador wei d by Philipp Gongora, CT on 2024 at 0844 PHARMACY INTERN ----- ----- ----- ----- ----- ----- ----- ----- ----- ----- ----- ----- ----- ----- ----- ----- ----- ---- HPV RESUL TS: HPV mRNA E6/E7 : No HPV mRNA Detec flavia NOTE: This high risk HPV mRNA assay detec ts fourt een high- risk HPV types (16, 18, 31, 33, 35, 39, 45, 51, 52, 56, 58, 59, 66, 68) witho ut diffe renti ation . COMME NT: This speci men was revie wed by a Cytot echno logis t and/o r Patho logis t (as indic ated in this repor t) after evalu ation using the Thinp rep Imagi ng Syste m. CLINI CELI INFOR MATIO N: Menst rual Statu s: LMP (if appli cable ): Clini celi Histo ry/Pr eviou s Pap: Type of Neopl danielito (if appli cable ): Signi fican t Clini celi Findi ngs: Other Histo ry: Hormo bernice (if appli cable ): PAP EDUCA JENAE L NOTE: The Pap Test is a scree dwayne test with an inher ent false negat perlita rate. Liqui d-bas ed sampl ing may decre ase, but will not elimi ken, false negat perlita resul ts. A negat perlita resul t does not precl ude the prese nce and/o r devel opmen t of disea se, since the prese nce of abnor mal cells in the sampl e depen ds on the locat ion of the lesio n and sampl ing techn ique. Vonda nued regul ar scree dwayne is the best metho d of cance r preve ntion . If repor flavia cytol ogic findi ng do not corre late with physi celi and/o r histo rical findi ngs, furth er inves tigat ion is recom nerissa d, as clini leticia simon nted. Not Available [facility] (Lab) [address], [place], [address], 01/18/2025 09:49:31 03/02/20 24 01/23/2024 CT, abdom en + pelvi s, w/ contr ast No observ ation record ed. [email or web address] [facility] [address], [place], [address], 03/02/2024 19:26:39 03/08/20 24 03/08/2024 US, trans vagin al No observ ation record ed. [email or web address], [place], [address], 03/08/2024 15:12:11 03/08/20 24 03/08/2024 US, pelvi s No observ ation record ed. [email or web address], [place], [address], 03/08/2024 15:12:22 03/08/20 24 03/08/2024 US, pelvi s No observ ation record ed. [email or web address] [address], [place], [address], 03/11/2024 16:51:46 Result Notes None recorded. Problems Name Problem SNOMED Code Status Onset Date Resolution Date Notes Provider Name and Address Organization Details Recorded Time Infectio n screenin g Completed 201505/17/2020 Encounte r for screenin g for oth infec/pa rastc diseases ;Recorde d Elsewher e: No Locat ion: [facility] S ource: EHR Materials Research Engineer korey: N Practi ce ID: [id number] Ej lable Time: 04:30:00 PM Shellie shafer [facility] 1 18:03:30 Screenin g for malignan t neoplasm of rectum Completed 201505/17/2020 Screenin g for malignan t neoplasm s of the rectum;R ecorded Elsewher e: No Locat ion: [facility] S ource: EHR Materials Research Engineer korey: N Practi ce ID: [id number] Ej lable Time: 04:30:00 PM Shellie shafer [facility] 18:03:42 Syphilis test finding [id number] Completed 201505/17/2020 Encntr screen for infectio ns w sexl mode of transmis s;Record ed Elsewher e: No Locat ion: Klarissacarrie katrina [facility] S ource: EHR Materials Research Engineer korey: N Stephenti ce ID: [email or web address] Ej lable Time: 04:30:00 PM Shellie shafer, [facility] 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 18:03:46 Screenin g for malignan t neoplasm of cervix Completed 201505/17/2020 Screenin g for cervical ca;Recor ded Elsewher e: No Locat ion: [facility]illyjessie herndon [facility] S ource: EHR Materials Research Engineer korey: N Stephenti ce ID: [id number] Ej lable Time: 04:30:00 PM Shellie shafer, [facility] 18:03:40 Body mass index 30+ - obesity [id number] Completed 201505/17/2020 Body mass index (BMI) 33.0-33. 9, adult;Re corded Elsewher e: No Locat ion: [facility] katrina [facility] S ource: EHR Materials Research Engineer korey: N Stephenti ce ID: [id number] Ej lable Time: 04:30:00 PM Shellie shafer [facility] 18:03:[address] Concept Completed 201705/17/2020 Encntr for general adult medical exam w/o abnormal findings ;Recorde d Elsewher e: No Locat ion: Russel katrina [facility] S ource: EHR Materials Research Engineer korey: N Stephenti ce ID: [id number] Ej lable Time: 05:00:00 PM Shellie shafer [facility] 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 18:03:32 Replacem ent of intraute rine contrace ptive device Completed 201905/17/2020 Encntr for removal and reinsert ion of uterin contrace p dev;Daniel rded Elsewher e: No [facility]: Eduarda Sharma ce ID: [email or web address] Ej lable Time: 01:00:00 PM Shellie shafer [facility] 18:03:38 Pregnanc y test negative [id number] Completed 201905/17/2020 Encounte r for pregnanc y test, result negative ;Recorde d Elsewher e: No Locat ion: [facility]: Eduarda Sharma ce ID: [email or web address] Ej lable Time: 01:00:00 PM Shellie shafer [facility] 18:03:34 Hyperten sive disorder 42493806 Active 2020 Shellie shafer [facility] 18:03:54 Anxiety disorder 795296585 Active 2020 Shellie shafer, [facility] 18:04:12 History of abnormal cervical Papanico laou smear 138289892 Active 2020 Shellie Vang [facility] 18:04:38 Human papillom a virus infectio n 770557539 Active 2020 Shellie shafer [facility] 18:04:47 Problem Notes None recorded. Procedures Surgical History Date Name Laterality Status Provider Name and Address Organization Details Recorded Time 01/12/20 24 Date of Last Pap Smear completed Elizabet Rubio [facility] 06/23/2024 18:01:32 11/25/19 24 Date of Last Mammogram completed Ashtyn Correa [facility] 01/12/2024 17:34:52 12/16/19 23 Date of Last Colonoscopy completed Shellie Vang [facility] 01/07/2023 17:30:47 12/16/19 23 completed Julia Dewitt [facility] 01/08/2023 17:51:46 05/16/19 23 Colonoscopy completed Shellie Vang [facility] 01/07/2023 17:31:11 06/16/19 22 cholecystectomy completed Shellie Vang [facility] 07/04/2021 18:31:33 03/17/19 17 Thyroid Surgery completed Shellie Vang [facility] 07/02/2019 18:50:47 03/17/19 16 Unlisted px lungs & pleura completed Shellie Vang [facility] 07/02/2019 18:49:54 01/16/20 09 section completed Shellie Vang [facility] 07/02/2019 18:49:17 03/17/19 04 Colposcopy completed Shellie Vang [facility] 05/17/2020 19:37:41 03/17/19 04 loop electrosurgical excision procedure completed Shellie Vang [facility] 07/02/2019 18:50:10 03/17/19 04 Colposcopy completed Shellie Vang [facility] 05/17/2020 19:40:29 Imaging Results None recorded. Procedure Notes None recorded. Medical Equipment None Reported. Allergies Allergen ID Allergen Name Allergen Category Reaction Reaction Severity Criticality Documentation Date Start Date Code Code System Note Provider Name and Address Organization Details Recorded Time 88921 Dairy medicatio n abdominal pain moderate Not available 01/08/2023 Julia Dewitt hollis [facility] 3 17:51:34 25078 Gluten (substanc e) food,medi cation abdominal pain moderate Not available 01/12/2024 92866 004 SNOMED Ashtyn Correa [facility] 4 17:34:34 Medications Name Sig Start Date Stop Date Status Note LastModified by Organization Details LastModified Time losartan 50 mg tablet 07/04 completed Not Available Not Available Not Available amoxicill in 500 mg capsule TAKE 1 CAPSULE BY MOUTH EVERY 8 HOURS UNTIL ALL TAKEN 01/07 completed Not Available Not Available Not Available Mirena 21 mcg/24 hr (up to 8 years) 52 mg intrauter ine device as directed 2019 active Prescrib ed Elsewher e: No Locat ion: [facility] M odify By: [email or web address] z Encoun ter DateTime : 05/28/19 01:00:00 PM Not Available Not Available Not Available atorvasta tin 40 mg tablet 01/12 completed Not Available Not Available Not Available bupropion HCl SR 150 mg tablet,12 hr sustained -release 03/26 completed Not Available Not Available Not Available atorvasta tin 80 mg tablet active Not Available Not Available Not Available carvedilo l 6.25 mg tablet TAKE 1 TABLET BY MOUTH TWICE DAILY WITH FOOD active Not Available Not Available No t Available paroxetin e 10 mg tablet 07/01 completed Not Available Not Available Not Available atorvasta tin 20 mg tablet 07/04 completed Not Available Not Available Not Available carvedilo l 12.5 mg tablet 03/26 completed Not Available Not Available Not Available trazodone 50 mg tablet 07/01 completed Not Available Not Available Not Available cetirizin e 10 mg tablet TAKE 1 TABLET BY MOUTH DAILY NEEDED FOR ALLERGY SYMPTOMS 08/15 completed Not Available Not Available Not Available hydrocodo ne 5 mg-acetam inophen 325 mg tablet TAKE 1 TO 2 TABLETS BY MOUTH EVERY 6 HOURS NEEDED FOR PAIN 07/04 completed Not Available Not Available Not Available sucralfat e 1 gram tablet 01/12 completed Not Available Not Available Not Available lisinopri l 20 mg tablet 05/17 completed Not Available Not Available Not Available Paxil 10 mg/5 mL oral suspensio n take 10 millilit er by oral route every day 05/17 completed Prescrib ed Elsewher e: Yes Loca tion: [facility] odify By: marie ortizunter DateTime : 04/22/19 19 05:00:00 PM Not Available Not Available Not Available simvastat in 10 mg tablet take 1 tablet by oral route every day in the evening 05/17 completed Prescrib ed Elsewher e: Yes Loca tion: [facility] odify By: gene Herndon ncounter DateTime : 03/24/19 18 05:00:00 PM Not Available Not Available Not Available cyanocoba fanny (vit B-12) 1,000 mcg tablet TAKE 1 TABLET BY MOUTH DAILY 06/23 completed Not Available Not Available Not Available estradiol 0.05 mg/24 hr semiweekl y transderm al patch APPLY 1 PATCH TOPICALL Y TO THE SKIN 2 TIMES A WEEK 06/23 completed Not Available Not Available Not Available peg-elect rolyte solution 420 gram oral solution MIX AND DRINK DIRECTED BY OFFICE 01/07 completed Not Available Not Available Not Available simvastat in 40 mg tablet Take 1 tablet every day by oral route. 07/04 completed Not Available Not Available Not Available carvedilo l 3.125 mg tablet TAKE 1 TABLET BY MOUTH TWICE DAILY WITH FOOD 03/26 completed Not Available Not Available Not Available prednison e 10 mg tablets in a dose pack FOLLOW PACKAGE DIRECTIO NS 01/12 completed Not Available Not Available Not Available Percocet 10 mg-325 mg tablet take 1 tablet by oral route every 6 hours as needed 03/24 completed Prescrib ed Elsewher e: Yes Loca tion: [facility] odify By: gene heart DateTime : 03/13/20 16 04:30:00 PM Not Available Not Available Not Available levothyro xine 500 mcg intraveno us powder for solution inject by intraven ous route every day 04/22 completed Prescrib ed Elsewher e: Yes Loca tion: [facility] odify By: marie heart DateTime : 03/24/19 18 05:00:00 PM Not Available Not Available Not Available dexametha sone 1 mg tablet TAKE 1 TABLET BY MOUTH AT BEDTIME AROUND 11PM AND HAVE YOUR FASTING LABS CORTISOL AND DEXAMETH ASONE DONE THE NEXT MORNING AROUND OR BEFORE 8AM 06/23 completed Not Available Not Available Not Available Flagyl 500 mg tablet take 1 tablet by oral route every 12 hours 04/28 completed Prescrib ed Elsewher e: No Locat ion: [facility] odify By: [email or web address] z Encoun ter DateTime : 04/24/19 19 12:02:07 PM Not Available Not Available Not Available amlodipin e 10 mg tablet 07/04 completed Not Available Not Available Not Available doxycycli ne monohydra te 100 mg capsule TAKE 1 CAPSULE BY MOUTH TWICE DAILY THE FIRST DAY AND THEN 1 CAPSULE EVERY DAY UNTIL GONE 01/11 completed Not Available Not Available Not Available paroxetin e 30 mg tablet 01/11 completed Not Available Not Available Not Available paroxetin e 20 mg tablet 01/11 completed Not Available Not Available Not Available simvastat in 20 mg tablet 07/01 completed Not Available Not Available Not Available triamcino lone acetonide 0.1 % topical ointment APPLY TOPICALL Y TO THE AFFECTED AREA TWICE DAILY 08/15 completed Not Available Not Available Not Available lisinopri l 10 mg tablet 07/01 completed Not Available Not Available Not Available promethaz ine 25 mg tablet TAKE 1/2 TABLET BY MOUTH EVERY 6 HOURS NEEDED FOR NAUSEA 01/11 completed Not Available Not Available Not Available losartan 25 mg tablet 05/17 completed Not Available Not Available Not Available hydrochlo rothiazid e 12.5 mg capsule active Not Available Not Available Not Available omeprazol e 20 mg capsule,d elayed release TAKE 1 CAPSULE BY MOUTH DAILY 01/12 completed Not Available Not Available Not Available ergocalci ferol (vitamin D2) 1,250 mcg (50,000 unit) capsule TAKE 1 CAPSULE BY MOUTH WEEKLY 06/23 completed Not Available Not Available Not Available ibuprofen 600 mg tablet TAKE 1 TABLET BY MOUTH EVERY 6 - 8 HOURS NEEDED FOR PAIN 01/07 completed Not Available Not Available Not Available methylpre dnisolone 4 mg tablets in a dose pack FOLLOW PACKAGE DIRECTIO NS 01/12 completed Not Available Not Available Not Available paroxetin e 40 mg tablet 01/11 completed Not Available Not Available Not Available losartan 100 mg tablet active Not Available Not Available Not Available ezetimibe 10 mg tablet active Not Available Not Available Not Available bupropion HCl XL 300 mg 24 hr tablet, extended release 01/12 completed Not Available Not Available Not Available bupropion HCl XL 150 mg 24 hr tablet, extended release TAKE 1 TABLET BY MOUTH EVERY DAY active Not Available Not Available No t Available amlodipin e 10 mg-atorva statin 40 mg tablet 08/15 completed Not Available Not Available Not Available nitrofura ntoin monohydra te/macroc rystals 100 mg capsule 01/07 completed Not Available Not Available Not Available fenofibra te micronize d 145 mg tablet 03/26 completed Not Available Not Available Not Available alendrona te 70 mg-cholec alciferol (vitamin D3) 2,800 unit tablet 03/26 completed Not Available Not Available Not Available fish oil-dha-e pa 1,200 mg-144 mg-216 mg capsule active Not Available Not Available Not Available chlorhexi dine gluconate 0.12 % mouthwash RINSE AND SPIT 5 ML 2 - 3 TIMES DAILY FOR 1 WEEK 01/07 completed Not Available Not Available Not Available Fish Oil 07/04 completed Not Available Not Available Not Available Vitamin D3 01/12 completed Not Available Not Available Not Available Vitamin B12 06/23 completed Not Available Not Available Not Available fenofibra te nanocryst allized 145 mg tablet TAKE 1 TABLET BY MOUTH DAILY WITH FOOD 06/23 completed Not Available Not Available Not Available aliskiren 150 mg-hydroc hlorothia zide 12.5 mg tablet 08/15 completed Not Available Not Available Not Available fenofibra te 54 mg tablet take 1 tablet by oral route every day 05/17 completed Prescrib ed Anamikaher e: Yes [facility] By: gene ortizunter DateTime : 03/24/19 05:00:00 PM Not Available Not Available Not Available Acid Sheet Metal Duct Worker Supervisor (omeprazo le) 20 mg capsule,d elayed release 01/12 completed Not Available Not Available Not Available Adults' Daily Formula 01/08 completed Not Available Not Available Not Available Mounjaro 7.5 mg/0.5 mL subcutane ous pen injector INJECT 7.5MG UNDER THE SKIN EVERY 7 DAYS active Not Available Not Available No t Available Mounjaro 5 mg/0.5 mL subcutane ous pen injector INJECT 5MG UNDER THE SKIN EVERY 7 DAYS. HOLD FOR SIDE EFFECTS 01/12 completed Not Available Not Available Not Available Mounjaro 2.5 mg/0.5 mL subcutane ous pen injector INJECT 2.5 MG UNDER THE SKIN ONE DAY A WEEK 06/23 completed Not Available Not Available Not Available mecobalam in (vitamin B12) 2,500 mcg chewable tablet 03/26 completed Not Available Not Available Not Available Vitals Date Recorded Body height Body mass index (BMI) Body weight Systolic And Diastolic Provider Name and Address Organization Details Last Updated DateTime 03/26/2024 165.1 cm 40.4 kg/m2 930075.95 g 140/85 mm[Hg] Kenisha Skaggs [facility] 03/26/2024 10:30:07 Date Recorded Body height Body mass index (BMI) Body weight Systolic And Diastolic Provider Name and Address Organization Details Last Updated DateTime 06/23/2024 165.1 cm 38.9 kg/m2 434882.61 g 142/86 mm[Hg] Elizabet Rubio [facility] 06/23/2024 18:00:28 Date Recorded Body height Body mass index (BMI) Body weight Systolic And Diastolic Provider Name and Address Organization Details Last Updated DateTime 01/12/2024 165.1 cm 39.9 kg/m2 682043.17 g 144/84 mm[Hg] Ashtyn Correa [facility] 01/12/2024 17:39:58 Date Recorded Body height Body mass index (BMI) Body weight Systolic And Diastolic Provider Name and Address Organization Details Last Updated DateTime 01/12/2025 165.1 cm 34.3 kg/m2 06342.47 g 145/89 mm[Hg] Elizabet Rubio [facility] 01/12/2025 17:21:39 Social History Question Answer Notes LastModified by Organizat ion Details LastModified Time Tobacco Smoking Status Current Every Day Smoker Julia Renate shafer [facility] 01/08/2023 17:51:54 Do You Have An Advance Directive? No [email or web address] Information not available 07/04/2021 If You Are , What Was Your Level Of Alcohol Consumption Prior To ? None Information not available 01/08/2023 How Many Years Have You Consumed Alcohol? 19 [email or web address] Information not available 07/04/2021 Are You Blind Or Do You Have Difficulty Seeing? No Information not available 05/17/2020 What Is Your Level Of Caffeine Consumption? Moderate [email or web address] Information not available 08/15/2021 How Much Tobacco Do You Chew? None [email or web address] Information not available 01/12/2024 In The 14 Days Before Symptom Onset, Have You Had Close Contact With A Laboratory-confir med COVID-19 While That Case Was Ill? No [email or web address] Information not available 05/17/2020 In The 14 Days Before Symptom Onset, Have You Had Close Contact With A Person Who Is Under Investigation For COVID-19 While That Person Was Ill? No [email or web address] Information not available 05/17/2020 Have You Been To An Area Known To Be High Risk For COVID-19? No Information not available 08/15/2021 Are You Deaf Or Do You Have Serious Difficulty Hearing? No [email or web address] Information not available 05/17/2020 What Type Of Diet Are You Following? GLUTENFREE [email or web address] Information not available 01/12/2024 Which Illicit Or Recreational Drugs Have You Used? No Information not available 01/08/2023 What Is The Highest Grade Or Level Of School You Have Completed Or The Highest Degree You Have Received? [id number] [email or web address] Information not available 07/04/2021 Are There Any Guns Present In Your Home? Yes [email or web address] Information not available 07/04/2021 What Was The Date Of Your Most Recent Tobacco Screening? 08/15/2021 Information not available 01/08/2023 Have You Ever Been Counseled For Unhealthy Alcohol Use? No Information not available 01/08/2023 Do You Use Protection During Sex? Always [email or web address] Information not available 07/04/2021 Do You Use Your Seat Belt Or Car Seat Routinely? Yes [email or web address] Information not available 05/17/2020 Do You Have Smoke And Carbon Monoxide Detectors In Your Home? Yes [email or web address] Information not available 05/17/2020 At What Age Did You Start Smoking Tobacco? 19 [email or web address] Information not available 07/04/2021 How Much Tobacco Do You Smoke? 1 PPW [email or web address] Information not available 01/12/2024 Do You Use Sunscreen Routinely? Yes [email or web address] Information not available 05/17/2020 Has Tobacco Cessation Counseling Been Provided? No Information not available 01/08/2023 How Many Years Have You Smoked Tobacco? 30 Information not available 01/12/2024 Have You Used IV Drugs? No [email or web address] Information not available 07/04/2021 Do You Have Difficulty Walking Or Climbing Stairs? No Information not available 01/08/2023 Sex: Unknown Functional Status Question Answer Note LastModified by Organizat ion Details LastModified Time Do you use any illicit or recreational drugs? No [email or web address] Information not available 05/17/2020 Do you or have you ever used any other forms of tobacco or nicotine? No Information not available 01/08/2023 What is your level of alcohol consumption? Occasional Information not available 01/08/2023 Are you able to walk independently without assistance or assistive devices? YESWOREST [email or web address] Information not available 05/17/2020 Are you able to care for yourself independently? 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 No Information not available 01/08/2023 What is your exercise level? Moderate [email or web address] Information not available 07/04/2021 Mental Status Question Answer Note LastModified by Organization D etails LastModified Time Do you feel stressed (tense, restless, nervous, or anxious, or unable to sleep at night)? [id number] [email or web address] Information not available 01/12/2024 Family History Relationship Description Onset Age of this Age Resolved Age Notes LastModified by Organization Details LastModified Time Mother Hypercholest erolemia [email or web address] Not available 07/01 18:46:54 Father Heart disease [email or web address] Not available 07/01 18:47:03 Maternal Grandmother Malignant neoplasm of breast [email or web address] Not available 12/16 17:06:25 Maternal Aunt Malignant neoplasm of breast [email or web address] Not available 12/16 17:06:25 Maternal Aunt Disorder of thyroid gland [email or web address] Not available 07/01 18:48:23 Paternal Aunt Malignant neoplasm of breast [email or web address] Not available 12/16 17:06:25 Maternal Grandfather Malignant neoplasm of colon [email or web address] Not available 12/16 17:06:25 Maternal Grandfather Diabetes mellitus [email or web address] Not available 07/01 18:48:32 Maternal Grandfather Carcinoma of prostate [email or web address] Not available 12/16 17:06:25 Medical History Condition Response Allergies (Food, seasonal, environmental ) Y Other Y Breast Cancer N Drug/Latex Allergies/Reactions N Blood Transfusion N Dermatologic Disorders N Lung Disease N Defects or Inherited Disease N Breast Problem N Gestational Diabetes N Hematologic disorders N Anesthesia Complications N History of STI Y Deep Vein Thrombosis N Polycystic ovary syndrome N Anxiety Disorder Y Autoimmune disease N Arthritis N Infertility N Polyps N Acid Reflux (GERD) N History of abnormal pap Y Cancer N Stroke N Varicosities N Neurologic/Epilepsy N Endometriosis N High Cholesterol Y Headaches N Fibromyalgia N Kidney Disease N Heart Problems N Kidney or Bladder Problems N Thyroid Problems Y GI Problems N Eating Disorder N Anemia N Art (IVF or FET) N Psychiatric Illness N Ovarian Cancer N Diabetes N Pulmonary (TB, Asthma) N Hepatitis/Liver Disease N No Past Medical History N Eczema N Urinary Tract Infection N Abuse/Domestic Violence N Asthma N Trauma/Violence N Depression/ depression Y Heart Disease N Pre-Eclampsia N Hypertension Y Osteoporosis N Thrombophilias N Gynecological History Statement/Question Response Date of Last Mammogram 11/25/2023 Date of LMP N Was last menstrual period normal Y STIs/STDs Y Date of control 08/16/2019 Date of Last Colonoscopy 12/15/2022 IUD Desired Control Method Hysterectom y Abnormal Pap Y On BCP's at Conception? N Colposcopy 03/17/2003 HPV Vaccine N Current Control Method IUD Age at First Child 33 Sexually Active? N Menses Monthly N Date of DEXA bone scan Age of first menstrual cycle 13 Date of Last Pap Smear 01/12/2024 Sexual Problems? N LMP Unknown 12/15/2022 N 04/28/2019 Obstetrics History GPAL:G 1 P 1 0 0 1 Type Value Full Term 1 Living 1 Total 1 Immunizations Vaccine Type Date Status Note Provider Nam e and Address Organization Details Recorded Time SARS-COV-2 (COVID-19) vaccine, UNSPECIFIED completed Shellie Vang [facility] 05/17/2020 18:03:22 Past Encounters Encounter ID Performer Location Encounter Start Date Encounter Closed Date Diagnosis/Indication Diagnosis SNOMED-CT Code Diagnosis ICD10 Code Diagnosis IMO Codes Diagnosis Note [id number] Olena Neal CNM [place] [address],[place] [address] 06/30/2019 11:00:09 07/07/2019 09:14:11 [id number] Olean Neal CNM [place] [address] [place] [address] 07/02/2019 09:35:24 07/02/2019 11:38:12 IUD check [id number] Z30.431 [id number] Olena Neal, [facility] [address],[place] [address] 05/17/2020 17:37:51 05/18/2020 10:29:15 Gynecologic examination [id number] Z01.419 [id number] Olena Neal [facility] [address],[place] [address] 07/04/2021 18:08:35 07/10/2021 10:36:38 [id number] Olena Neal [facility] [address],[place] [address] 08/15/2021 12:34:24 08/15/2021 13:41:13 Gynecologic examination [id number] Z01.419 [id number] Olena Neal [facility] [address],[place] [address] 01/08/2023 17:43:27 01/10/2023 04:41:29 [id number] STANLEY HERNANDEZ MD [place] [address],[place] [address] 01/12/2024 17:10:56 01/16/2024 17:40:39 Gynecologic examination [id number] Z01.419 Z11.51 [facility]- Cervical cancer screening: Pap smear obtained today, will follow up on the results with the patient as they become available- Breast cancer screening: mammogram completed- HPV immunizati on: does not qualify- STD testing: declined- hereditary cancer screening: does not qualify for testing [id number] Basim Alexander MD [place] [address],[place] [address] 03/08/2024 14:08:53 03/08/2024 15:02:29 Cyst of left ovary [id number] N83.292 [id number] STANLEY HERNANDEZ MD [place] [address],[place] [address] 03/26/2024 10:18:43 03/26/2024 12:27:36 Cyst of left ovary [id number] 7900042 N83.202 - 3.5cm simple cyst of L ovary visualized - ORADS-2- recommend yearly follow up US to reevaluate Perimenopausal state 310 [id number] 87345 Z78.0 - patient reports ~9 months of worsening perimenopa usal symptoms- have tried paxil without improvemen t previously - discussed expectant management vs HRT- We discussed Menopausal Hormone therapy (MHT) for women with intact uterus with the goals of reliving vaso-motor sx's using estrogen/p rogestin therapy (EPT) using lowest doses for shortest duration in women 40-59yo. Contraindi cations include: Hx of DVT or thrombolic events, High cholestero l, Hx of breast cancer, known CHD, active liver disease, unexplaine d vag bleeding, high risk endometria l cancer, TIA. Side effects can include but are not limited to: Irregular vag bleeding,, breast tenderness , nausea, weight changes, libido changes, nausea. Adverse Rxn: Elevated BP migraine w/ visual changes, breast cancer dx, SD/stroke, DVT/PE, Endometria l cancer. Please contact office with any new or worsening side effects or adverse reactions. Or if a medical emergency please go to nearest ED/[facility] care for further evaluation . - will start estrogen patch; Mirena IUD in place for endometria l protection - rtc 3 months for med check [id number] Basim Alexander MD [place] [address] [address] 06/23/2024 17:29:55 06/24/2024 03:04:22 Menopausal symptom [id number] N95.1 Patient to d/c estradiol patches due to reported adverse reaction. Discussed other options for HRT other than transderma l patches, including risks/bene fits/AEs. Patient declined and prefers to f/u after appointmen t with weight loss specialist . Patient to f/u in WWE on or after 01/12/24, or sooner if needed. [id number] MEI BILLY NP [place] [address] [address] 01/12/2025 17:06:04 01/12/2025 17:52:31 Well woman health examination [id number] Z01.419 [id number] Annual gynecologi celi exam performed. Patient will come back in a year unless there are new symptoms. Suggest Calcium with Vitamin D if not eating in diet. Patient advised to get annual flu shot. Recommend yearly physicals and perform monthly breast exams. Genetic testing is available for patients with family history of cancer. Engage in safe sexual practices, use condoms. Encouraged to have daily exercise. Avoid tobacco and illicit drugs, moderation of alcohol. If BMI greater than 25 dietary consult advised. If you have any questions please call or email. mammogram- ordered; pt to schedule colon cancer screening - UTD PCP DEXA scan- n/a Pap smear- pap w/ HPV collected laboratory evaluation - PCP STI testing - declined A Mirena IUD prevents for up to 8 years, and also helps with heavy periods for up to 5 years in women who choose an IUD for control. Screening mammography 24 821645 Z12.31 [id number] Health Concerns Section Related Observation LastModified by Organization Detai ls LastModified Time None Recorded Concern Status LastModified by Organization Details LastModified Time None Recorded Advance Directives Directive N: Payers Insurance Date Sequence Insurance Name Policy Number Policy Yi Covered Member ID Yi Member ID Guarantor Name 01/09/2025 1 [place] [id number] Maritza Doherty [id number] Maritza Doherty Notes Date Note Type Note Provider Name and Address Organization Details Recorded Time 4 text/html Presents today for her annual well-woman exam. Denies abnormal vaginal discharge. She is not sexually active but denies dyspareunia. She is using IUD (placed 05/2019) for contraception, and she states that she is satisfied with this method. She has not noticed any changes or masses in her breasts. Mammogram up to date. Amenorrhea. Having some menopausal symptoms, all manageable per patient. STANLEY HERNANDEZ MD [address], [place], [address], [facility] 01/15/2024 01:04:04 5 text/html Patient presents for ultrasound follow up. She had a CT scan performed for RUQ pain and intermittent diarrhea. She is scheduled to see GI. On recent CT scan, a 3.5cm ovarian cyst was seen. Pelvic US was ordered to further evaluate. She denies pelvic pain or irregular bleeding. She has an IUD in place. She does report about 9 months of hot flashes and mood swings. She also reports stress urinary incontinence. She is on bupropion in August for mood swings, after switching from paxil, with some improvement. However she reports easy irritation. STANLEY HERNANDEZ MD [address], [place], [address], [facility] 03/26/2024 12:03:28 5 text/html 49 y/o female presents for three month med check after starting estradiol 0.05 mg semi-weekly transdermal patch for perimenopausal symptoms.Patient states that she stopped the patches three weeks ago because she was experiencing itchy rashes on her hands, feet, and arms. Patient states that once she stopped using the patches, the rash resolved.Patient started Mounjaro and has been losing weight. Patient feels as though her perimenopausal symptoms of irritability and vasomotor symptoms have been improving. Patient seeing weight loss specialist in November and prefers to stay off HRT until then. Patient has Mirena IUD, denies concerns, abnormal bleeding, or pelvic pain. MEI BILLY NP [address], [place], [address], [facility] 06/23/2024 18:36:32 5 text/html Annual GYNReported by PatientGenitourinary symptomsFor urinary symptoms, patient reportsno hematuriaandno incontinence. For vulva, patient reportsno genital lesion. For vagina, patient reportsnormal vaginal discharge. For menstrual cycle, (no periods with iud).Breast symptomsFor breast, patient reportsno breast pain,no breast lump, andno nipple discharge.ContraceptionFo r current contraception, patient reportssatisfied with current contraceptionandintrauter ine device (iud).Endocrine symptomsFor sexual complaints, patient reportsno sexual complaints,no pain during intercourse, andnormal libido. For menopausal symptoms, patient reportsno menopausal symptomsandnormal vaginal lubrication.Psychological symptomsFor psychological symptoms, patient reportsno depression,no anxiety, andno pmdd.Preventative measuresFor preventive measures, patient reportsencourage self breast examination,encourage regular exercise,encourage no tobacco use, andencourage regular mammograms starting age 40. Patient presents for annual well woman exam. Patient denies concerns today. Elizabet shafer [facility] 01/12/2025 17:52:50 OBGyn Episode Ob Episode Information Episode Created Date Number of Fetuses Patient Bloodtype Patient rh Status Prepregnancy Weight lbs Domestic Partner Domestic Partner Phone Father Name Metal Burnisher Status 07/02/19 20 1 CLOSED Fetus Data First Name Last Name Admitted to NICU Weight (g) Sex Living Outcome Pediatric Complications Fetus ID Race Codes Race Delivery Type 3742.13 4 F Full Term 601 Primary Doni Calculation Initial Doni Date Initial Exam Date Initial Exam Provider Initial Ultrasound Date Last Menstrual Period Date Ultra Sound Weeks Gestation 0 Eighteen To Twenty Week Doni Update Ultra Sound Date Fundal Height At Umbil Quickening Date Ultra Sound Latest Weeks Gestation Final Doni Confirmed By Final Doni Confirmed Date Final Doni Date Ultra Sound Latest Days Gestation 0 0 Menstrual History Last Menstrual Date Menses Monthly On Bcp Conception Prior Menses Frequency Hcg Plus Date Menarche Onset Age Delivery Information Delivery Date Delivery Type Labor Anesthesia Weeks Gestation Incision Type Labor Labor Length Hrs Delivered By Post Complications Tubal Sterilization Discharge Date Comments 9 41 cord wrapped Discharge Information Feeding Method Contraceptive Method Maternal HG B and HCT Levels Ob Episode Information Episode Created Date Number of Fetuses Patient Bloodtype Patient rh Status Prepregnancy Weight lbs Domestic Partner Domestic Partner Phone Father Name Metal Burnisher Status 01/12/20 24 1 DELETED Fetus Data First Name Last Name Admitted to NICU Weight (g) Sex Living Outcome Pediatric Complications Fetus ID Race Codes Race Delivery Type [id number] Doni Calculation Initial Doni Date Initial Exam Date Initial Exam Provider Initial Ultrasound Date Last Menstrual Period Date Ultra Sound Weeks Gestation 01/12/2024 0 Eighteen To Twenty Week Doni Update Ultra Sound Date Fundal Height At Umbil Quickening Date Ultra Sound Latest Weeks Gestation Final Doni Confirmed By Final Doni Confirmed Date Final Doni Date Ultra Sound Latest Days Gestation 0 0 Menstrual History Last Menstrual Date Menses Monthly On Bcp Conception Prior Menses Frequency Hcg Plus Date Menarche Onset Age Delivery Information Delivery Date Delivery Type Labor Anesthesia Weeks Gestation Incision Type Labor Labor Length Hrs Delivered By Post Complications Tubal Sterilization Discharge Date Comments Discharge Information Feeding Method Contraceptive Method Maternal HG B and HCT Levels
--- OUTSIDE RECORDS SUMMARY | 2025-02-15 16:51 | XMS_ITS | Encounter Summary ---
Author Organization [facility] Address [facility] [place] [address] Care Team Providers Care Correctional Counselor/Case Manager Name Role Phone Abbie [facility]- Primary Care Provider + Marciano Lara MD Primary Care Provider [phone] Encounter Details Date Type Department Care Team (Late st Contact Info) Description 04/30/2024 Maker's Row Message Enc [facility] Family & Internal Medicine [address] [address] Abbie Klein, [place] [address] Samson's visit Social History Tobacco Use Types Packs/Day Years [...] on file documented as of this encounter Functional Status * Over the past 2 weeks, how often have you been bothered by any of the following problems? Question Answer Date of Assessment Author Status Little interest or pleasure in doing things Not at all 04/30/2024 3:[address] MA Active Feeling down, depressed, or hopeless Not at all 04/30/2024 3:[address] [place] Active Patient Health Questionnaire-2 Score 0 04/30/2024 3:[address] MA Active * Question Answer Date of Assessment Author Status Trouble falling or staying asleep, or sleeping too much Not at all 04/30/2024 3:[address] [place] Active Feeling tired or having little energy Not at all 04/30/2024 3:[address] [place] Active Poor appetite or overeating Not at all 04/30/2024 3:[address] [place] Active Feeling bad about yourself - or that you are a failure or have let yourself or your family down Not at all 04/30/2024 3:[address] [place] Active Trouble concentrating on things, such as reading the newspaper or watching television Not at all 04/30/2024 3:[address] [place] Active Moving or speaking so slowly that other people could have noticed? Or the opposite - being so fidgety or restless that you have been moving around a lot more than usual. Not at all 04/30/2024 3:[address] [place] Active Thoughts that you would be better off or hurting yourself in some way Not at all 04/30/2024 3:[address] MA Active Patient Health Questionnaire-9 Score 0 04/30/2024 3:[address] MA Active * If you checked off any problems on this questionnaire so far, Question Answer Date of Assessment Author Status How difficult have these problems made it for you to do your work, take care of things at home, or get along with other people? Not difficult at all 04/30/2024 3:14 PM ESTIMATOR Haylee Ortiz MA Active documented as of this encounter Progress Notes * ISRAEL Bundy - 05/04/2024 11:34 AM CST Okay to start Contrave if her lead ruby on rails developer is in agreement. Lets us know after her next appointment. She will need to stop her other bupropion medication since bupropion is in contrave. Recommend using [facility] since her insurance does not cover weight loss medications. It may be $100+/mo out of pocket. MATOR Juanis Sousa RN - 05/04/2024 10:59 AM CST Please review notes and advise. MATOR * ISRAEL Bundy - 05/03/2024 10:29 AM CST GLP-1 medications, such as semaglutide, are contraindicated with personal and family history of certain thyroid cancers. We would need to consult with your lead ruby on rails developer that they would be okay with you starting this with your prior history. The medications are FDA approved for either diabetes management (Ozempic/Mounjaro) or weight loss (Wegovy/Zepbound). Unfortunately, fatty liver, prediabetes and metabolic syndrome are not diagnoses covered for the medications, even though they are beneficial for these conditions. Without a diagnosis of diabetes, it would depend on your insurance for howmuch, or if, the medication would be covered. Alternatives to this for weight loss would include Contrave (naltrexone/bupropion) which is a weight loss pill taken twice daily, referral or consult with a weight loss clinic (such as at [facility]), orreferral for surgical options. It looks like your lead ruby on rails developer also recommended testing for debbie syndrome, did you have blood work completed for this? MATOR * Carmen Sousa RN - 05/03/2024 10:08 AM CST Please advise. Does she need an appointment? Last appointment 12/2023 MATOR documented in this encounter Plan of Treatment Upcoming Encounters Date Type Department Care Team (Late st Contact Info) Description 07/26/2025 3:20 PM CDT Office Visit [facility] Family & Internal Medicine - [place] [address] [place] [address] [place] [address] [address] documented as of this encounter Visit Diagnoses Not on filedocumented in this encounter Additional Health Concerns Assessment Noted Time PHQ-9 Depression Total Score: 0 04/30/19 3:14 PM ESTIMATOR documented as of this encounter Care Teams Correctional Counselor/Case Manager Relationship Specialty Start Date End Date Abibe Klein, NEWS ANCHOR- PCP - General Nurse Practitioner Family 10/28/2309/14 [place] [address] [address] PCP - General INTERNAL MEDICINE 09/25/24 documented as of this encounter
--- OUTSIDE RECORDS SUMMARY | 2025-02-15 16:51 | XMS_ITS | Encounter Summary ---
Author Organization [facility] Address [facility] [place] [address] Care Team Providers Care Retail Parts Professional Name Role Phone Abbie Klein CASHIER COURTESY [employer]OTH- Primary Care Provider + Marciano Lara MD Primary Care Provider [phone] Encounter Details Date Type Department Care Team (Late st Contact Info) Description 05/18/2024 Homecare Homebase Message Enc [facility] Family & Internal Medicine [address] [address] Abbie Klein, [facility] [place] [address] Curtis's visit 05/14 Social History Tobacco Use Types Packs/Day Years [...] encounter Progress Notes * ISRAEL Bundy - 05/18/2024 12:38 PM CST Noted. I did receive her office visit notes and will follow for lab results. Thank you for the update. SUPERVISOR * Yojana Momin MA - 05/18/2024 12:17 PM CST FYI SUPERVISOR documented in this encounter Plan of Treatment Upcoming Encounters Date Type Department Care Team (Late st Contact Info) Description 07/26/2025 3:20 PM CDT Office Visit [facility] Family & Internal Medicine [facility] [address] [place] [address] [place] [address] [id number] documented as of this encounter Visit Diagnoses Not on filedocumented in this encounter Additional Health Concerns Assessment Noted Time PHQ-9 Depression Total Score: 0 04/30/19 3:14 PM MILL SUPERVISOR documented as of this encounter Care Teams Retail Parts Professional Relationship Specialty Start Date End Date Abbie Klein FNP-BC PCP - General Nurse Practitioner Family 10/28/2309/14 [place] [address] [id number] PCP - General INTERNAL MEDICINE 09/25/24 documented as of this encounter
--- OUTSIDE RECORDS SUMMARY | 2025-02-15 16:51 | XMS_ITS | Encounter Summary ---
Author Organization [facility] Address [facility] [place] [address] Care Team Providers Care Tractor Mechanic Name Role Phone Abbie Klein [employer]- Primary Care Provider + Marciano Lara MD Primary Care Provider [phone] Encounter Details Date Type Department Care Team (Late st Contact Info) Description 09/13/2024 [employer] Message Enc [facility] Family & Internal Medicine [address] [address] Abbie Klein, [facility] [place] [address] New provider Social History Tobacco Use Types Packs/Day Years [...] as of this encounter Progress Notes * Rea Conklin RN - 09/13/2024 6:01 PM CDT Can someone please call pt to get her scheduled an apt to est care with new Dr? Thank you! documented in this encounter Plan of Treatment Upcoming Encounters Date Type Department Care Team (Late st Contact Info) Description 07/26/2025 3:20 PM CDT Office Visit [facility] Family & Internal Medicine [facility] [address] [place] [address] [place] [address] [address] documented as of this encounter Visit Diagnoses Not on filedocumented in this encounter Additional Health Concerns Assessment Noted Time PHQ-9 Depression Total Score: 0 04/30/19 25 3:14 PM TIP PUNCHER documented as of this encounter Care Teams Tractor Mechanic Relationship Specialty Start Date End Date Abbie Klein, [employer]- PCP - General Nurse Practitioner Family 10/28/2309/14 [place] [address] [address] PCP - General INTERNAL MEDICINE 09/25/24 documented as of this encounter
--- OUTSIDE RECORDS SUMMARY | 2025-02-15 16:51 | XMS_ITS | Continuity of Care Document ---
Author Organization [facility] Address [address] [place] [address] Care Team Providers Care Mine Surveyor Name Role Phone LAURA BOWEN Primary Care Provider Assessment Encounter Date Assessment Date Assessment LastModified by Organization Details LastModified Time 01/12/2025 01/12/2025 Annual gynecological exam performed. Patient will come back in a year unless there are new symptoms. Not available 01/12/2025 17:13:09 Plan of Treatment Reminders Order Date Submit Date Provider Last Modified By Organization Details Last Modified Time Details Appointments [facility] 2025 04:15P M MEI BILLY NP Not available Not available Not available Lab pap, IG + HR HPV - HPV regardles s but if HPV is positive need subtyping 16,18/45 2024 025 [facility] (Lab), [address], [place], [address], 01/18/2025 09:49:31 Referral None recorded. Procedures None recorded. Surgeries None recorded. Imaging MAMMO, screening , digital, bilateral 2024 025 [facility], [address], [place], [address], 01/26/2025 04:04:48 Medication Orders None recorded. Patient TargetsNo targets recorded. Patient InstructionsNo instructions recorded. Reason for Referral None Reported. Results Created Date Observation Date Name Description Value Unit Range Abnormal Flag Note LastModifiedBy Organization Detail LastModifiedTime 01/13/2001/12/2025 IMAGE GUIDE D PAP AND HPV REGAR DLESS image guided Pap, HPV regardless of Pap result SEE RESULT S BELOW CASE REPOR T: Cytol ogy Gynec ologi celi Repor t Case: [id number] Autho rustam tello Provi anatoly: Dermo dy, Mei , ANP, CHIEF OF STAFF DOCTOR Colle cted: 01/12 1658 Order ing Locat ion: [place] [facility] Recei yeimy: 01/13 0851 First Scree n: Philipp Gongora, CT Speci men: Azeem [...] epith elial Shin lerner or Keisha dennis (NIL) . Elect amador raza eriberto d by Philipp Gongora, CT on 2024 at 0844 DOLLY DRIVER ----- ----- ----- ----- ----- ----- ----- [...] as clini leticia simon nted. Not Available [facility] (Lab) [address], [place], [address], 01/18/2025 09:49:31 Result Notes None recorded. Problems Name Problem SNOMED Code Status Onset Date Resolution Date Notes Provider Name and Address Organization Details Recorded Time Infectio n screenin g Completed 201505/17/2020 Encounte r for screenin g for oth infec/pa rastc diseases ;Recorde d Elsewher e: No Locat ion: [facility] S ource: EHR Leathersmith korey: N Practi ce ID: 0001 Ej lable Time: 04:30:00 PM Shellie Vang [facility], [facility] 18:03:30 Screenin g for malignan t neoplasm of rectum Completed 201505/17/2020 Screenin g for malignan t neoplasm s of the rectum;R ecorded Elsewher e: No Locat ion: Klarissacarrie katrina [facility] S ource: EHR Leathersmith korey: N Stephenti ce ID: 0001 Ej lable Time: 04:30:00 PM Shellie shafer, [facility] 18:03:42 Syphilis test finding 396642215 Completed 201505/17/2020 Encntr screen for infectio ns w sexl mode of transmis s;Record ed Elsewher e: No [facility] Leathersmith korey: N Stephenti ce ID: 0001 Ej lable Time: 04:30:00 PM Shellie Vang [facility] 18:03:[address] Concept Completed 201505/17/2020 Encntr for spray ii painter exam (general ) (routine ) w/o abn findings ;Recorde d Elsewher e: No Locat ion: [facility]jessie herndon [facility] S ource: EHR Leathersmith korey: N Stephenti ce ID: 0001 Ej lable Time: 04:30:00 PM Shellie Vang [facility], [facility] 18:03:46 Screenin g for malignan t neoplasm of cervix Completed 201505/17/2020 Screenin g for cervical ca;Recor ded Elsewher e: No Locat ion: Klarissacarrie katrina [facility] S ource: EHR Leathersmith korey: N Stephenti ce ID: 0001 Ej lable Time: 04:30:00 PM Shellie Vang hollis [facility] 18:03:40 Body mass index 30+ - obesity 185038840 Completed 201505/17/2020 Body mass index (BMI) 33.0-33. 9, adult;Re corded Elsewher e: No Locat ion: Russel herndon [facility] S ource: EHR Leathersmith korey: N Stephenti ce ID: 0001 Ej lable Time: 04:30:00 PM Shellie Taj hollis, [facility] 18:03:[address] Concept Completed 201705/17/2020 Encntr for general adult medical exam w/o abnormal findings ;Recorde d Elsewher e: No Locat ion: [facility] S ource: EHR Leathersmith korey: Karen Sharma ce ID: 0001 Ej lable Time: 05:00:00 PM Shellie Vang hollis, [facility] 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 1 18:03:32 Replacem ent of intraute rine contrace ptive device Completed 201905/17/2020 Encntr for removal and reinsert ion of uterin contrace p dev;Daniel rded Elsewher e: No Locat ion: [facility] Karen Sharma ce ID: 0001 Ej lable Time: 01:00:00 PM Shellie Vang [facility], [facility] 1 18:03:38 Pregnanc y test negative 232314514 Completed 201905/17/2020 Encounte r for pregnanc y test, result negative ;Recorde d Elsewher e: No Locat ion: [facility] Karen Sharma ce ID: 0001 Ej lable Time: 01:00:00 PM Shellie Vang [facility] 18:03:34 Hyperten sive disorder 43907749 Active 2020 Shellie shafer [facility] 18:03:54 Anxiety disorder 171645678 Active 2020 Shellie shafer [facility] 18:04:12 History of abnormal cervical Papanico laou smear 051530006 Active 2020 Shellie shafer [facility] 18:04:38 Human papillom a virus infectio n 267174058 Active 2020 Shellie shafer [facility] 18:04:47 Problem Notes None recorded. Procedures Surgical History Date Name Laterality Status Provider Name and Address Organization Details Recorded Time 01/12/20 24 Date of Last Pap Smear completed Elizabet Rubio [facility] 06/23/2024 18:01:32 11/25/19 24 Date of Last Mammogram completed Ashtyn Correa [facility] 01/12/2024 17:34:52 12/16/19 23 Date of Last Colonoscopy completed Shelliemoris Vang [facility] 01/07/2023 17:30:47 12/16/19 23 completed Julia Dewitt [facility] 01/08/2023 17:51:46 05/16/19 23 Colonoscopy completed Shellie Vang [facility] 01/07/2023 17:31:11 06/16/19 22 cholecystectomy completed Shellie Vang [facility] 07/04/2021 18:31:33 03/17/19 17 Thyroid Surgery completed Shellie Vang [facility] 07/02/2019 18:50:47 03/17/19 16 Unlisted px lungs & pleura completed Shellie Vang [facility] 07/02/2019 18:49:54 01/16/20 09 section completed [facility] 07/02/2019 18:49:17 03/17/19 04 Colposcopy completed [facility] 05/17/2020 19:37:41 03/17/19 04 loop electrosurgical excision procedure completed [facility] 07/02/2019 18:50:10 03/17/19 04 Colposcopy completed [facility] 05/17/2020 19:40:29 Imaging Results None recorded. Procedure Notes None recorded. Medical Equipment None Reported. Allergies Allergen ID Allergen Name Allergen Category Reaction Reaction Severity Criticality Documentation Date Start Date Code Code System Note Provider Name and Address Organization Details Recorded Time 70180 Dairy medicatio n abdominal pain moderate Not available 01/08/2023 Julia Dewitt [facility] 3 17:51:34 34055 Gluten (substanc e) food,medi cation abdominal pain moderate Not available 01/12/2024 86350 004 SNOMED Ashtyn Correa [facility] 4 17:34:34 Medications Name Sig Start [...] Prescrib ed Elsewher e: No [facility] By: hellen z Ruperto garcia DateTime : 05/28/19 01:00:00 PM Not Available [...] Prescrib ed Elsewher e: Yes Loca [facility] By: marie heart DateTime : 04/22/19 19 05:00:00 PM Not Available Not Available Not Available simvastat in 10 mg tablet take 1 tablet by oral route every day in the evening 05/17 completed Prescrib ed Elsewher e: Yes [facility] By: gene [place] ncounter DateTime : [...] Prescrib ed Elsewher e: Yes [facility]oca [facility] By: gene heart DateTime : 03/13/20 16 04:30:00 PM Not Available Not Available Not Available levothyro xine 500 mcg intraveno us powder for solution inject by intraven ous route every day 04/22 completed Prescrib ed Elsewher e: Yes [facility]oca [facility] By: marie heart DateTime : 03/24/19 [...] Prescrib ed Elsewher e: No [facility] By: [email or web address] z Encoun ter DateTime [...] oral route every day 05/17 completed Prescrib collette herndon: Yes Loca tion: [facility]ify By: gene heart DateTime : 03/24/19 05:00:00 PM Not Available Not Available Not Available Acid Label Remover (omeprazo le) 20 mg capsule,d elayed release [...] Updated DateTime 01/12/2025 165.1 cm 34.3 kg/m2 53165.47 g 145/89 mm[Hg] Elizabet Rubio [facility] 01/12/2025 17:21:39 Social History Question Answer Notes LastModified by Organizat ion Details LastModified Time Tobacco Smoking Status Current Every Day Smoker Julia Dewitt hollis [facility] 01/08/2023 17:51:54 Do You Have An Advance Directive? No [email or web address] Information not available 07/04/2021 If You Are , What Was Your Level Of Alcohol Consumption Prior To ? None Information not available 01/08/2023 How Many Years Have You Consumed Alcohol? 19 [email or web address] Information not available 07/04/2021 Are You Blind Or Do You Have Difficulty Seeing? No [email or web address] Information not available 05/17/2020 What Is Your Level Of Caffeine Consumption? Moderate [email or web address] Information not available 08/15/2021 How Much Tobacco Do You Chew? None [email or web address] Information not available 01/12/2024 In The 14 Days Before Symptom Onset, Have You Had Close Contact With A Laboratory-confir med COVID-19 While That Case Was Ill? No [email or web address] Information not available 05/17/2020 In The 14 Days Before Symptom Onset, Have You Had Close Contact With A Person Who Is Under Investigation For COVID-19 While That Person Was Ill? No [email or web address] Information not available 05/17/2020 Have You Been To An Area Known To Be High Risk For COVID-19? No [email or web address] Information not available 08/15/2021 Are You Deaf Or Do You Have Serious Difficulty Hearing? No [email or web address] Information not available 05/17/2020 What Type Of Diet Are You Following? GLUTENFREE [email or web address] Information not available 01/12/2024 Which Illicit Or Recreational Drugs Have You Used? No Information not available 01/08/2023 What Is The Highest Grade Or Level Of School You Have Completed Or The Highest Degree You Have Received? [id number] [email or web address] Information not available 07/04/2021 Are There Any Guns Present In Your Home? Yes [email or web address] Information not available 07/04/2021 What Was The Date Of Your Most Recent Tobacco Screening? 08/15/2021 Information not available 01/08/2023 Have You Ever Been Counseled For Unhealthy Alcohol Use? No Information not available 01/08/2023 Do You Use Protection During Sex? Always [email or web address] Information not available 07/04/2021 Do You Use Your Seat Belt Or Car Seat Routinely? Yes [email or web address] Information not available 05/17/2020 Do You Have Smoke And Carbon Monoxide Detectors In Your Home? Yes [email or web address] Information not available 05/17/2020 At What Age Did You Start Smoking Tobacco? 19 Information not available 07/04/2021 How Much Tobacco Do You Smoke? 1 PPW [email or web address] Information not available 01/12/2024 Do You Use Sunscreen Routinely? Yes [email or web address] Information not available 05/17/2020 Has Tobacco Cessation Counseling Been Provided? No Information not available 01/08/2023 How Many Years Have You Smoked Tobacco? 30 [email or web address] Information not available 01/12/2024 Have You Used IV Drugs? No [email or web address] Information not available 07/04/2021 Do You Have Difficulty Walking Or Climbing Stairs? No Information not available 01/08/2023 Sex: Unknown Functional Status Question Answer Note LastModified by Organizat ion Details LastModified Time Do you use any illicit or recreational drugs? No Information not available 05/17/2020 Do you or have you ever used any other forms of tobacco or nicotine? No Information not available 01/08/2023 What is your level of alcohol consumption? Occasional Information not available 01/08/2023 Are you able to walk independently without assistance or assistive devices? YESWOREST [email or web address] Information not available 05/17/2020 Are you able to care for yourself independently? 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 No Information not available 01/08/2023 What is your exercise level? Moderate [email or web address] Information not available 07/04/2021 Mental Status Question Answer Note LastModified by Organization D etails LastModified Time Do you feel stressed (tense, restless, nervous, or anxious, or unable to sleep at night)? [id number] [email or web address] Information not available 01/12/2024 Family History Relationship Description Onset Age of this Age Resolved Age Notes LastModified by Organization Details LastModified Time Mother Hypercholest erolemia [email or web address] Not available 07/01 18:46:54 Father Heart disease [email or web address] Not available 07/01 18:47:03 Maternal Grandmother Malignant neoplasm of breast [email or web address] Not available 12/16 17:06:25 Maternal Aunt Malignant neoplasm of breast [email or web address] Not available 12/16 17:06:25 Maternal Aunt Disorder of thyroid gland [email or web address] Not available 07/01 18:48:23 Paternal Aunt Malignant neoplasm of breast [email or web address] Not available 12/16 17:06:25 Maternal Grandfather Malignant neoplasm of colon [email or web address] Not available 12/16 17:06:25 Maternal Grandfather Diabetes mellitus [email or web address] Not available 07/01 18:48:32 Maternal Grandfather Carcinoma [...] Immunizations Vaccine Type Date Status Note Provider Mark herndon and Address Organization Details Recorded Time SARS-COV-2 (COVID-19) vaccine, UNSPECIFIED completed Shellie Vang [facility] 05/17/2020 18:03:22 Past Encounters Encounter ID Performer Location Encounter Start Date Encounter Closed Date Diagnosis/Indication Diagnosis SNOMED-CT Code Diagnosis ICD10 Code Diagnosis IMO Codes Diagnosis Note [id number] MEI BILLY, SASHA [place] [address] [address] 01/12/2025 17:06:04 01/12/2025 17:52:31 Well woman health examination 261482006 Z01.419 609586 Annual gynecologi celi exam performed. Patient will [...] an IUD for control. Screening mammography 24 707531 Z12.31 [id number] Health Concerns Section Related Observation LastModified by Organization Detai ls LastModified Time None Recorded Concern Status LastModified by Organization Details LastModified Time None Recorded Payers Encounter Date Sequence Insurance Name Policy Number Policy Yi Covered Member ID Yi Member ID Guarantor Name 01/12/2025 1 [employer] [id number] Maritza Doherty [id number] Maritza Doherty Notes Date Note Type Note Provider Name and Address Organization Details Recorded Time text/html Annual GYNReported by PatientGenitourinary symptomsFor urinary [...] exam. Patient denies concerns today. Elizabet shafer [facility] 01/12/2025 17:52:50 OBGyn Episode No OBEpisode recorded.
--- OUTSIDE RECORDS SUMMARY | 2025-02-15 16:51 | XMS_ITS | Clinical Summary ---
Author Organization [facility] Address [address] [place] [address] Care Team Providers Care College And Career Counselor Name Role Phone Abbie Klein Ingris SHIFT NURSE MANAGER Primary Care Provider [phone] Allergies Active Allergy Reactions Criticality Noted Date Comments 1 Alpha-Gal Unknown Dairy Tolerance (Xgztzizrb-Xchxg-0,3-Galact ose) Diarrhea,Flatulence,Stomac h upset,Swelling Medium 05/14/2024 Gluten Itching,Stomach upset,Swelling Medium 05/14/2024 Gluten Protein Stomach upset Medium 09/06/2024 L.Acidoph-L.Bulg-B.Bif-S.Th erm Stomach upset Medium 12/01/2023 Medications cetirizine (ZyrTEC) 10 mg tablet TAKE 1 TABLET BY MOUTH DAILY NEEDED FOR ALLERGY SYMPTOMS 10/22/19 21 Active levonorgestreL (Mirena) IUD Mirena 20 mcg/24 hours (6 yrs) 52 mg intrauterine device as directed 05/28/19 20 Active losartan (COZAAR) 100 mg tablet daily 08/16/19 21 Active omega-3 fatty acids-fish oil 360-1,200 mg capsule Take by mouth daily Active carvediloL (COREG) 6.25 mg tablet Take 1 tablet (6.25 mg total) by mouth 2 (two) times a day with meals 180 tablet 11/27/19 24 Active cyanocobalamin (vitamin B-12) 100 mcg tablet Take 1 tablet (100 mcg total) by mouth daily 90 tablet 11/27/19 24 Active Additional Information Patient not taking.Reported on 10/01/2024 estradioL (VIVELLE-DOT) 0.05 mg/24 hr APPLY 1 PATCH TOPICALLY TO THE SKIN 2 TIMES A WEEK 03/28/19 25 Active buPROPion XL (WELLBUTRIN XL) 150 mg 24 hr tablet Take 1 tablet (150 mg total) by mouth daily 11/02/19 24 Active sucralfate (CARAFATE) 1 gram tablet Take 1 tablet (1 g total) by mouth 2 (two) times a day 01/01/20 24 Active triamcinolone (KENALOG) 0.1 % cream 08/26/19 25 Active MULTIVITAMIN ORAL Take by mouth Has VD3 VB12 and Fish oil combination pack Active ezetimibe (ZETIA) 10 mg tablet Take 1 tablet (10 mg total) by mouth daily 30 tablet 11/12/19 25 026 Active atorvastatin (LIPITOR) 80 mg tablet Take 1 tablet (80 mg total) by mouth daily 30 tablet 11/24/19 026 Active hydroCHLOROthi azide 12.5 mg tablet TAKE 1 CAPSULE(12.5 MG) BY MOUTH EVERY MORNING 90 tablet/capsu le 1 11/24/19 25 Active tirzepatide (Mounjaro) 7.5 mg/0.5 mL pen injector injectionIndic ations:Type 2 diabetes mellitus with hyperglycemia, without long-term current use of insulin (HCC) Inject 0.5 mL (7.5 mg total) under the skin every 7 days Hold medication if developing abdominal pain, nausea, vomiting, dyspepsia, bloating, or severely ill; Hold medication during hospital stay; Hold medication for >1 week for planned surgical/medical procedure with anesthesia, to prevent possible complications such as vomiting. 2 mL 3 01/22/20 25 Active tirzepatide (Mounjaro) 7.5 mg/0.5 mL pen injector injectionIndic ations:Type 2 diabetes mellitus with hyperglycemia, without long-term current use of insulin (HCC) Inject 0.5 mL (7.5 mg total) under the skin every 7 days Hold medication if developing abdominal pain, nausea, vomiting, dyspepsia, bloating, or severely ill; Hold medication during hospital stay; Hold medication for >1 week for planned surgical/medical procedure with anesthesia, to prevent possible complications such as vomiting. 2 mL 3 01/12/20 25 025 Discontin ued(Reord er) Active Problems Problem Noted Date Diagnosed Date Dietary counseling 11/22/2024 Hypersomnia 11/22/2024 Metabolic dysfunction-associated steatohepatitis (MASH) 11/22/2024 Metabolic disorder 11/22/2024 Thyroid nodule 05/03/2016 Pleural scarring 03/12/2016 Pneumonia 03/07/2016 Hypertension Hyperlipidemia Surgical History Surgery Date Site/Laterality Comments IR FINE NEEDLE ASPIRATION W IMAGE GUIDANCE 05/17/2016 N/A CT CHEST TUBE INSERTION LEFT 02/17/2016 N/A CHOLECYSTECTOMY 06/15/2021 Medical History Medical History Date Comments Hypertension Hyperlipidemia Family History Medical History Relation Name Comments Heart attack Father Hyperlipidemia Father Hypertension Father Hyperlipidemia Mother Hypertension Mother Relation Name Status Comments Father Mother Social History Tobacco Use Types Packs/Day Years Used Date Smoking Tobacco: Every Day Cigarettes Passive Smoke Exposure: Never Smokeless Tobacco: Never Tobacco Cessation:Ready to Q uit: No; Counseling Given: No Comments:trying the patches Comments Unknown Sex and Gender Information Value Date Recorded Sex Assigned at Not on file 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 Gender Identity Female 07/31/2023 7:43 AM CDT Sexual Orientation Straight 07/31/2023 7: 43 AM CDT Last Filed Vital Signs Vital Sign Reading Time Taken Comments Blood Pressure 137/86 10/01/2024 9:27 AM CDT Pulse 91 10/01/2024 9:27 AM CDT Temperature 36.8 C (98.3 F) 10/01/2024 9:27 AM CDT Respiratory Rate 23 08/15/2024 12:15 PM CDT Oxygen Saturation 98% 09/06/2024 11:10 AM CDT Inhaled Oxygen Concentration - - Weight 96.3 kg (212 lb 6.4 oz) 10/01/2024 9:27 A M CDT Height 165.1 cm (5' 5) 10/01/2024 9:27 AM CDT Body Mass Index 35.35 10/01/2024 9:27 AM CDT Plan of Treatment Health Maintenance Due Date Last Done Comments Albumin Creatinine Ratio, Urine 1975 Cervical Cancer Screening 1975 Colon Cancer Screening-Colonoscopy 1975 Depression Screening 1975 Hepatitis C Screening 1975 eGFR 1975 Dilated Eye Exam 1975 Foot Exam 1975 DTaP/Tdap/Td Vaccine (1 - Tdap) 1986 Hepatitis B Screening 1993 Regular Well Visit/Exam 18-64 1993 Pneumococcal vaccine <65 (1 of 2 - PCV) 1994 Breast Cancer Screening-Mammogram 09/18/2022 022, 06/16/2020 Influenza Vaccine (#1) 2024 3, 12/20/2021, 12/25/2020, Additional history exists Lipid Panel 12/29/2024 12/30/2023, 10/15, 03/14/2021 Hemoglobin A1C 04/03/2025 10/01/2024, 04/18, 12/30/2023, Additional history exists Procedures Procedure Name Priority Date/Time Associated Diagnosis Comments POCT HEMOGLOBIN A1C Routine 10/01/2024 9 :32 AM CDT Type 2 diabetes mellitus with hyperglycemia, without long-term current use of insulin (HCC) LIPID PANEL Routine 12/30/2023 7:43 AM CDT Dyslipidemia from Last 3 Months or Most Recently Relevant to Health Maintenance Results * (ABNORMAL) POCT hemoglobin A1c (10/01/2024 9:32 AM CDT) Hemoglobin A1C, POC 5.8(A) 4.0 - 5.6 % Blood 10/01/2024 9:32 AM CDT Mehnaz Curtis MD POINT OF CARE TEST ORDERABLES Fi nal Result * (ABNORMAL) Lipid panel (12/30/2023 7:43 AM CDT) Cholesterol 228(H) <200 mg/dL [facility] HDL 43(L) > OR = 50 mg/dL [facility] Triglycerides 229(H) <150 mg/dL [facility] Comment: If a non-fasting specimen was collected, consider repeat triglyceride testing on a fasting specimen if clinically indicated. Maggie et al. J. of Clin. Lipidol. 2015;9:129-169. LDL 148(H) mg/dL (calc) [facility] Comment: Reference range: <100 Desirable range <100 mg/dL for primary prevention; <70 mg/dL for patients with CHD or diabetic patients with > or = 2 CHD risk factors. LDL-C is now calculated using the Greg-Dyson calculation, which is a validated novel method providing better accuracy than the Friedewald equation in the estimation of LDL-C. Greg SS et al. BRANDAN. 2013;310(19): 6432-5866 (http://education.FookyZ/faq/ZFL733) Chol/HDL ratio 5.3(H) <5.0 (calc) [facility] Non-HDL, (LDL+VLDL) 185(H) <130 mg/dL (calc) [facility] Comment: For patients with diabetes plus 1 major ASCVD risk factor, treating to a non-HDL-C goal of <100 mg/dL (LDL-C of <70 mg/dL) is considered a therapeutic option. Blood 12/30/2023 7:43 AM CDT 12/30/2023 7:45 AM CDT Narrative [facility] - 12/31/2023 1:46 AM CDT FASTING:YES FASTING: YES Mehnaz Curtis MD LAB BLOOD ORDERABLES Final Resul t [facility] [address] [facility] [place] [address] from Last 3 Months or Most Recently Relevant to Health Maintenance Insurance [facility] [place] Care Teams College And Career Counselor Relationship Specialty [place] [address] [address], [address] [place] [id number] PCP - General Family Medicine 11/06/23
== END 2025-02-15 15:47 | disposition home or self-care (01) ==
PROVIDERS: PCP Internal Medicine; Visit Provider Obstetrics & Gynecology
DX: Z12.31 Encounter for screening mammogram for malignant neoplasm of breast (principal)
CPT/HCPCS: 77063; 77067